=== PATIENT | female | born 1995 | race Caucasian/White ===

== ENCOUNTER → 2016-11-08 | Outpatient (CLI) | payer OTHER ==
--- NOTE | 2016-11-08 13:30 | XR ---
EXAMINATION TYPE: XR cervical spine limited DATE OF EXAM: 11/08/2016 1:21 PM COMPARISON: September 18, 2009 HISTORY: Neck pain TECHNIQUE: 4 views FINDINGS: There is some straightening of the vertebra and a slight kyphotic curvature. Disc spaces ar e normal. Posterior elements are intact. There are no cervical ribs. Atlantoaxial facet joint is norm al. IMPRESSION: There is mild kyphotic curvature that is new compared to old exam and could relate to spa sm. No fracture seen.
--- NOTE | 2016-11-08 13:32 | XR ---
EXAMINATION TYPE: XR lumbar spine 2 or 3V DATE OF EXAM: 11/08/2016 1:21 PM COMPARISON: September 18, 2009 HISTORY: Back pain TECHNIQUE: 3 views FINDINGS: Lumbar vertebra have normal spacing and alignment. Posterior elements are intact. Sacroilia c joints appear normal. IMPRESSION: Normal lumbar spine. No change.
== END | disposition home or self-care (01) ==
LOC: LABWHC1 12:41
PROVIDERS: ATTEND Internal Medicine
DX: M40.202 Unspecified kyphosis, cervical region (principal); M54.9 Dorsalgia, unspecified; N91.2 Amenorrhea, unspecified
CPT/HCPCS: 36415; 72040; 72100; 84702

== ENCOUNTER → 2017-02-02 | Outpatient (CLI) | payer OTHER ==
--- NOTE | 2017-02-02 22:08 | MR ---
EXAMINATION TYPE: MR shoulder LT wo con DATE OF EXAM: 02/02/2017 COMPARISON: NONE HISTORY: Lt shoulder pain x 6 years, hx of fall landing on neck and shoulder TECHNIQUE: Multiplanar, multisequence imaging of the left shoulder is performed without contrast. FINDINGS: Rotator Cuff: Supraspinatus and infraspinatus tendons are grossly intact to humeral head attachment. Subscapularis tendon is intact. No abnormal signal is seen. No partial or full-thickness tear is iden tified. Rotator cuff muscle bulk is preserved. Acromioclavicular Joint: Acromioclavicular joint is felt within normal limits. Inferior fat plane is maintained. Distal acromion morphology is unremarkable. Glenohumeral Joint: There is small glenohumeral joint effusion. No significant spurring or joint spac e loss is seen. Labrum: The labrum appears grossly intact given limitation of non-arthrogram study. Biceps Tendon: The long head of biceps is in normal location within bicipital groove. Bone marrow signal: No focal abnormal marrow signal is appreciated. Other: No additional significant abnormality is appreciated. IMPRESSION: No rotator cuff or labral tear. No significant finding is seen to account for patient's s ymptoms.
--- NOTE | 2017-02-02 22:14 | MR ---
EXAMINATION TYPE: MR cspine/lspine wo con DATE OF EXAM: 02/02/2017 COMPARISON: Cervical and lumbar spine x-ray November 08, 2016. CT cervical spine September 16, 2012. HISTORY: Cervicalgia and lumbago per order. Headaches with neck pain for 6 years per patient. Back pa in for 6 months per patient. TECHNIQUE: Multiplanar, multisequence imaging of the cervical and lumbar spine are performed without IV contrast. FINDINGS: C-SPINE: FINDINGS: Sagittal images of the cervical spine show the craniocervical junction to appear within nor mal limits. The cervical and upper thoracic spinal cord is normal in course, caliber, and signal. Th ere is loss of normal cervical curvature The vertebral body and intravertebral disk heights are marielle l. There is posterior disc herniation C6-C7 level on sagittal images of the anterior thecal sac. The bone marrow signal intensity is within normal limits. No significant spurring is seen. Axial images show the C2-C3, C3-C4, C4-C5, C5-C6 levels all to appear within normal limits. Axial images at C6-C7 level shows central disc protrusion effacing anterior thecal sac on axial image 13, bilateral neural foramina are patent. Axial images at C7-T1 level are felt within normal limits. IMPRESSION: Loss of normal cervical curvature with disc herniation C6-C7 level mildly effacing anteri or thecal sac. L-SPINE: Sagittal images of the lumbar spine show vertebral body heights and alignment to appear satisfactory. The intervertebral discs demonstrate normal heights and hydration. No large posterior disc herniati ons are seen on sagittal images. The conus medullaris is normal in position and signal ending at T12- L1 disc space level. The bone marrow signal intensity is within normal limits. No significant spurri ng is seen. Axial images show no focal disc disease, or facet degenerative change at any lumbar level. There is no spinal canal stenosis, neural foraminal narrowing, or evidence of nerve root compromise. Fluid-filled second portion of duodenum is incidentally noted. Patient has very little intra-abdomina l fat. IMPRESSION: Negative MRI of the lumbar spine. No significant abnormality is seen to account for carroll ent's symptoms.
== END | disposition home or self-care (01) ==
LOC: RADMRIMAIN 16:37
PROVIDERS: ATTEND Psychiatry & Neurology Pain Medicine
DX: M50.223 Other cervical disc displacement at C6-C7 level (principal); M54.5 Low back pain; M25.512 Pain in left shoulder
CPT/HCPCS: 72141; 72148

== ENCOUNTER 2017-02-07 12:36 | Emergency (ER) | payer OTHER ==
[2017-02-07] MEDS ORDERED: DICYCLOMINE 10 MG/ML 2 ML AMP IM STA (13:22)
[2017-02-07] MEDS ORDERED: diphenhydrAMINE 50 MG/ML 1 ML VIAL IVP STA (13:22)
[2017-02-07] MEDS ORDERED: SODIUM CHLORIDE 0.9% 1,000 ML IV STA (13:22)
[2017-02-07] MEDS ORDERED: METOCLOPRAMIDE 5 MG/ML 2 ML VIAL IVP STA (13:24)
--- NOTE | 2017-02-07 13:25 | ED ---
General Adult HPI - General Chief complaint: Back Pain/Injury Stated complaint: Abd Pain, Lower Back Pain Source: patient, RN notes reviewed Mode of arrival: ambulatory Limitations: no limitations - History of Present Illness Initial comments: Tate is a 21yo female who presents to the ED for evaluation of abdominal pain, back pain and headache. The patient reports that yesterday she developed cramping bilateral abdominal pain which radiates throughout her abdomen and is associated with nausea. She reports that she had a normal bowel movement yesterday no diarrhea, no constipation and no hematochezia. She denies any urinary symptoms. She reports her last menstrual cycle ended on January 20, this was her first menstrual cycle since giving to her child 16 months ago, because she has breast-feeding. Patient describes her abdominal pain is cramping in nature and constant. She took Advil yesterday with no relief. She was able to sleep throughout the night but woke this morning with persistent abdominal cramping. Patient does report a distant history of ovarian cysts which were diagnosed at age of 15. She denies any vaginal bleeding, vaginal discharge or concern for sexually transmitted infections. She recently followed up with her OB medical billing associate 2 months ago at which time she was given a good bill of health. Patient reports she has been suffering from recent headaches, vertigo and neck pain. She has been evaluated multiple times and referred to neurology. She has had an EEG, computed tomography scan and MRI. She reports that she feels like this abdominal pain is exacerbating these chronic symptoms. She reports that she is having a headache and worsening of her left neck pain which radiates to her left shoulder. This pain and discomfort is similar in character to her previous episodes. -: days(s) Location: abdomen Radiation: back, neck, extremity (left shoulder) Quality: aching Consistency: constant Improves with: none Worsens with: movement Associated Symptoms: headaches, loss of appetite Treatments Prior to Arrival: NSAID - Related Data Home Medications Medication Instructions Recorded Confirmed No Known Home Medications [No 02/07/17 02/07/17 Known Home Medications] Allergies Allergy/AdvReac Type Severity Reaction Status Date / Time No Known Allergies Allergy Verified 02/07/17 13:04 Last menstrual period: 01/13/17 Review of Systems ROS Statement: Those systems with pertinent positive or pertinent negative responses have been documented in the HPI. ROS Other: All systems not noted in ROS Statement are negative. Constitutional: Denies: fever, chills Eyes: Denies: vision change Respiratory: Denies: dyspnea Cardiovascular: Denies: chest pain Gastrointestinal: Reports: as per HPI, abdominal pain, nausea. Denies: vomiting , diarrhea, constipation, hematemesis, melena, hematochezia Genitourinary: Reports: abnormal menses (currently , irregular menses). Denies: urgency, dysuria, frequency, hematuria, discharge Musculoskeletal: Reports: back pain Skin: Denies: rash, lesions Neurological: Reports: headache. Denies: paresthesias, confusion Hematological/Lymphatic: Denies: swollen glands Past Medical History Past Medical History: No Reported History, Syncope Additional Past Medical History / Comment(s): back pain History of Any Multi-Drug Resistant Organisms: None Reported Past Surgical History: Appendectomy Additional Past Surgical History / Comment(s): bilat bottom wisdom teeth extraction Past Psychological History: Anxiety, Depression Smoking Status: Former smoker Past Alcohol Use History: None Reported Past Drug Use History: None Reported - Past Family History Mother Family Medical History: No Reported History General Exam Limitations: no limitations General appearance: alert, in no apparent distress Head exam: Present: atraumatic, normocephalic, normal inspection Eye exam: Present: normal appearance, PERRL, EOMI. Absent: scleral icterus, conjunctival injection, periorbital swelling ENT exam: Present: mucous membranes moist Neck exam: Present: full ROM. Absent: lymphadenopathy Respiratory exam: Present: normal lung sounds bilaterally. Absent: respiratory distress, wheezes, rales, rhonchi, stridor Cardiovascular Exam: Present: normal rhythm, tachycardia, normal heart sounds. Absent: systolic murmur, diastolic murmur, rubs, gallop, clicks GI/Abdominal exam: Present: soft, normal bowel sounds. Absent: distended, tenderness, guarding, rebound, rigid, organomegaly, mass Rectal exam: Present: deferred Extremities exam: Present: normal inspection, full ROM, normal capillary refill. Absent: tenderness, pedal edema, joint swelling, calf tenderness Neurological exam: Present: alert, oriented X3 Psychiatric exam: Absent: agitated Skin exam: Present: warm, dry Course Vital Signs 02/07/17 02/07/17 12:38 14:31 Temperature 99.7 F H Pulse Rate 102 H 78 Respiratory 22 18 Rate Blood Pressure 107/71 102/58 O2 Sat by Pulse 100 98 Oximetry - Reevaluation(s) Reevaluation #1: Patient noted to be sleeping comfortably in bed by nursing staff, patient re- evaluated, awake, reports her pain has subsided significantly and she was able to sleep. Now again experiencing low pelvic cramping. Headache resolved. Patient states her disintegrator feeder advised her to get a pelvic US while at the ER, advised patient we will order an ultrasound to evaluate. Patient agreeable. 02/07/17 15:09 Reevaluation #2: Patient was reevaluated, resting comfortably in bed. Ultrasound results were discussed with patient who reports she has been told she has ovarian cysts in the past and has a family history of ovarian cysts, she reports that her grandmother had of her ovaries removed due to chronic pain. Patient expresses understanding of the ultrasound findings. 02/07/17 16:51 Medical Decision Making - Medical Decision Making Patient seen and evaluated, history obtained by patient, medical records and nursing notes. Labs ordered, Reglan and Benadryl ordered for headache Patient with persistent low pelvic pain, US ordered Patient resting comfortably in bed US with RIGHT ovarian cyst, small amount of free fluid Results were discussed with patient who expresses understanding of findings, reports she has experienced ovarian cyst pain in the past and this is similar. She states she has close follow up with Clerical Dentist Assistant Dr Senthil gutierrez. Will call on Thursday for follow up visit. Patient also has follow up with neurology scheduled this week for evaluation of headaches. Patient advised to return to the ED for any acute worsening of pain, fever, chills, nausea, vomiting, lightheadedness or any symptoms she considers concerning. - Lab Data Result diagrams: 02/07/17 13:36 02/07/17 13:36 Lab Results 02/07/17 02/07/17 02/07/17 Range/Units 13:36 13:36 13:36 WBC 4.2 (3.8-10.6) k/uL RBC 4.24 (3.80-5.40) m/uL Hgb 12.8 (11.4-16.0) gm/dL Hct 39.2 (34.0-46.0) % MCV 92.5 (80.0-100.0) fL MCH 30.2 (25.0-35.0) pg MCHC 32.7 (31.0-37.0) g/dL RDW 13.1 (11.5-15.5) % Plt Count 176 (150-450) k/uL Neutrophils % 78 % Lymphocytes % 12 % Monocytes % 7 % Eosinophils % 0 % Basophils % 0 % Neutrophils # 3.3 (1.3-7.7) k/uL Lymphocytes # 0.5 L (1.0-4.8) k/uL Monocytes # 0.3 (0-1.0) k/uL Eosinophils # 0.0 (0-0.7) k/uL Basophils # 0.0 (0-0.2) k/uL Sodium 138 (137-145) mmol/L Potassium 4.0 (3.5-5.1) mmol/L Chloride 104 (98-107) mmol/L Carbon Dioxide 23 (22-30) mmol/L Anion Gap 11 mmol/L BUN 13 (7-17) mg/dL Creatinine 0.70 (0.52-1.04) mg/dL Est GFR (MDRD) Af Amer >60 (>60 ml/min/1.73 sqM) Est GFR (MDRD) Non-Af >60 (>60 ml/min/1.73 sqM) Glucose 78 (74-99) mg/dL Calcium 8.9 (8.4-10.2) mg/dL Total Bilirubin 0.6 (0.2-1.3) mg/dL AST 18 (14-36) U/L ALT 24 (9-52) U/L Alkaline Phosphatase 68 (38-126) U/L Total Protein 6.5 (6.3-8.2) g/dL Albumin 4.0 (3.5-5.0) g/dL Amylase <30 L (30-110) U/L Lipase 35 (23-300) U/L Urine Color Urine Appearance (Clear) Urine pH (5.0-8.0) Ur Specific [place] (1.001-1.035) Urine Protein (Negative) Urine Glucose (UA) (Negative) Urine Ketones (Negative) Urine Blood (Negative) Urine Nitrite (Negative) Urine Bilirubin (Negative) Urine Urobilinogen (<2.0) mg/dL Ur Leukocyte Esterase (Negative) Urine RBC (0-5) /hpf Urine WBC (0-5) /hpf Ur Squamous Epith Cells (0-4) /hpf Urine Bacteria (None) /hpf Urine Mucus (None) /hpf Urine HCG, Qual Not Detected (Not Detectd) 02/07/17 Range/Units 13:36 WBC (3.8-10.6) k/uL RBC (3.80-5.40) m/uL Hgb (11.4-16.0) gm/dL Hct (34.0-46.0) % MCV (80.0-100.0) fL MCH (25.0-35.0) pg MCHC (31.0-37.0) g/dL RDW (11.5-15.5) % Plt Count (150-450) k/uL Neutrophils % % Lymphocytes % % Monocytes % % Eosinophils % % Basophils % % Neutrophils # (1.3-7.7) k/uL Lymphocytes # (1.0-4.8) k/uL Monocytes # (0-1.0) k/uL Eosinophils # (0-0.7) k/uL Basophils # (0-0.2) k/uL Sodium (137-145) mmol/L Potassium (3.5-5.1) mmol/L Chloride (98-107) mmol/L Carbon Dioxide (22-30) mmol/L Anion Gap mmol/L BUN (7-17) mg/dL Creatinine (0.52-1.04) mg/dL Est GFR (MDRD) Af Amer (>60 ml/min/1.73 sqM) Est GFR (MDRD) Non-Af (>60 ml/min/1.73 sqM) Glucose (74-99) mg/dL Calcium (8.4-10.2) mg/dL Total Bilirubin (0.2-1.3) mg/dL AST (14-36) U/L ALT (9-52) U/L Alkaline Phosphatase (38-126) U/L Total Protein (6.3-8.2) g/dL Albumin (3.5-5.0) g/dL Amylase (30-110) U/L Lipase (23-300) U/L Urine Color Yellow Urine Appearance Cloudy H (Clear) Urine pH 7.0 (5.0-8.0) Ur Specific [place] 1.025 (1.001-1.035) Urine Protein 1+ H (Negative) Urine Glucose (UA) Negative (Negative) Urine Ketones 1+ H (Negative) Urine Blood Negative (Negative) Urine Nitrite Negative (Negative) Urine Bilirubin Negative (Negative) Urine Urobilinogen 2.0 (<2.0) mg/dL Ur Leukocyte Esterase Negative (Negative) Urine RBC 2 (0-5) /hpf Urine WBC 1 (0-5) /hpf Ur Squamous Epith Cells 14 H (0-4) /hpf Urine Bacteria Rare H (None) /hpf Urine Mucus Few H (None) /hpf Urine HCG, Qual (Not Detectd) Disposition Clinical Impression: Ovarian cyst Disposition: HOME SELF-CARE Instructions: Ovarian Cyst (ED) Referrals: None,Stated [Primary Care Provider] - 1-2 days Jailene Ndiaye DO [Doctor of Osteopathic Medicine] - 1-2 days
[2017-02-07 14:15] LABS: Basophils % (A) 0 %; CH 30.6; CHCM 33.2; Eosinophils % (A) 0 %; HCT 39.2 % (34.0-46.0); HDW 2.37; HGB 12.8 gm/dL (11.4-16.0); Luc # (Auto) 0.08; Luc % (Auto) 2; Lymphocytes # (A) 0.5 k/uL (1.0-4.8); Lymphocytes % (A) 12 %; MCH 30.2 pg (25.0-35.0); MCHC 32.7 g/dL (31.0-37.0); MCV 92.5 fL (80.0-100.0); Mean Platelet Volume 7.3; Monocytes # (A) 0.3 k/uL (0-1.0); Monocytes % (A) 7 %; Neutrophils # (A) 3.3 k/uL (1.3-7.7); Neutrophils % (A) 78 %; RBC 4.24 m/uL (3.80-5.40); RDW 13.1 % (11.5-15.5); WBC 4.2 k/uL (3.8-10.6)
[2017-02-07 14:20] LABS: Appearance,Urine Cloudy (Clear); Bacteria,Urine Rare /hpf; Bilirubin,Urine Negative (Negative); Glucose,Urine (UA) Negative (Negative); Ketones,Urine 1+ (Negative); Leukocyte Esterase,Urine Negative (Negative); Mucus,Urine Few /hpf; Nitrite,Urine Negative (Negative); Particle Count 5592; Protein,Urine 1+ (Negative); RBC,Urine 2 /hpf (0-5); Specific Gravity,Urine 1.025 (1.001-1.035); Squamous Epithelial Cell,Urine 14 /hpf (0-4); UA Billing (MACRO vs. MICRO) MICRO; WBC,Urine 1 /hpf (0-5)
[2017-02-07 14:32] VITALS: RESP 18
[2017-02-07 14:36] LABS: ALT 24 U/L (9-52); AST 18 U/L (14-36); Alkaline Phosphatase 68 U/L (38-126); Amylase <30 U/L (30-110); Anion Gap 11 mmol/L; Blood Urea Nitrogen 13 mg/dL (7-17); Calcium 8.9 mg/dL (8.4-10.2); Carbon Dioxide 23 mmol/L (22-30); Chloride 104 mmol/L (98-107); Glucose 78 mg/dL (74-99); Non-African American GFR(MDRD) >60 (>60 ml/min/1.73 sqM); Sodium 138 mmol/L (137-145); Total Bilirubin 0.6 mg/dL (0.2-1.3); Total Protein 6.5 g/dL (6.3-8.2)
--- NOTE | 2017-02-07 16:37 | US ---
EXAMINATION TYPE: US transvaginal DATE OF EXAM: 02/07/2017 COMPARISON: NONE CLINICAL HISTORY: Pain, abdominal cramping, LMP ended 6-6-17, 1st cycle since giving 16 months prior. TECHNIQUE: Transvaginal (TV) with color Doppler. EXAM MEASUREMENTS: Uterus: 8.5 x 4.6 x 6.0 cm Endometrial Stripe: 1.3 cm Right Ovary: 3.7 x 2.5 x 3.1 cm Left Ovary: 2.1 x 1.9 x 1.9 cm 1. Uterus: Anteverted wnl 2. Endometrium: wnl 3. Right Ovary: cyst vs dominant follicle measuring 2.4 x 1.6 x 2.1 4. Left Ovary: wnl Spectral, color and waveform doppler imaging shows good arterial and venous flow within the ovaries ; there is no evidence for ovarian torsion. 5. Bilateral Adnexa: ff adjacent to right ovary 6. Posterior cul-de-sac: mild ff IMPRESSION: There is mild free fluid in the cul-de-sac. There is a 2.4 x 1.6 cm right ovarian cyst. N ormal uterus and endometrium. No evidence of ovarian torsion.
[2017-02-07 17:10] VITALS: BP 108/59; PULSE 99; TEMP 98.6
== END 2017-02-07 17:10 | disposition home or self-care (01) ==
LOC: EC 12:36
DX: N83.201 Unspecified ovarian cyst, right side (principal); Z90.49 Acquired absence of other specified parts of digestive tract; Z87.891 Personal history of nicotine dependence
CPT/HCPCS: 99284; 96372; 96374; 96375; 96361; 36415; 80053; 82150; 83690; 85025; 81001; 81025; 93975; 76830; J1200; J0500; J2765

== ENCOUNTER 2017-02-18 12:47 | Emergency (ER) | payer OTHER ==
[2017-02-18] MEDS ORDERED: KETOROLAC 60 MG/2 ML VIAL IM STA (13:17)
[2017-02-18] MEDS ORDERED: methylPREDNISolone SOD SUCCI 125 MG/2 ML VIAL IM STA (13:17)
[2017-02-18] MEDS ORDERED: ORPHENADRINE 30 MG/ML 2 ML VIAL IM STA (13:17)
--- NOTE | 2017-02-18 13:52 | ED ---
Headache HPI - General Chief Complaint: Headache Stated Complaint: ovarian cysts/headaches Time Seen by Provider: 02/18/17 13:07 Source: RN notes reviewed Mode of arrival: ambulatory Limitations: no limitations - History of Present Illness Initial Comments: 21-year-old female presents for migraines and neck pain that she's had on and off for years. Patient states that she had an MRI done by her doctor is not reviewed results. Patient states it starts in her neck this pain will wrap around her head" on her shoulders. Patient states she just continues to have the pain so she thought that she should be seen. Patient states eating and Excedrin. Helping. Patient states the pain comes on gradually and slowly goes away and she'll get a few hours of relief but then it will come back. Patient states she just was wondering if this and she we can do to help her with her symptoms. - Related Data Home Medications Medication Instructions Recorded Confirmed Aspirin/Acetaminophen/Caffeine 2 tab PO DAILY PRN 02/18/17 02/18/17 [Excedrin Migraine Caplet] Previous Rx's Medication Instructions Recorded Ibuprofen [Motrin] 600 mg PO Q6HR PRN #20 tab 02/18/17 Orphenadrine [Norflex] 100 mg PO Q12H #10 tablet.er 02/18/17 predniSONE 50 mg PO DAILY #5 tab 02/18/17 Allergies Allergy/AdvReac Type Severity Reaction Status Date / Time No Known Allergies Allergy Verified 02/18/17 13:16 Review of Systems ROS Statement: Those systems with pertinent positive or pertinent negative responses have been documented in the HPI. ROS Other: All systems not noted in ROS Statement are negative. Past Medical History Past Medical History: No Reported History, Syncope Additional Past Medical History / Comment(s): back pain History of Any Multi-Drug Resistant Organisms: None Reported Past Surgical History: Appendectomy Additional Past Surgical History / Comment(s): bilat bottom wisdom teeth extraction Past Psychological History: Anxiety, Depression Smoking Status: Former smoker Past Alcohol Use History: None Reported Past Drug Use History: None Reported - Past Family History Mother Family Medical History: No Reported History General Exam Limitations: no limitations General appearance: alert, in no apparent distress Head exam: Present: atraumatic, normocephalic, normal inspection Eye exam: Present: normal appearance, PERRL, EOMI. Absent: scleral icterus, conjunctival injection, periorbital swelling ENT exam: Present: normal exam, mucous membranes moist Neck exam: Present: normal inspection. Absent: tenderness (Improvement with palpation of pain), meningismus, lymphadenopathy Respiratory exam: Present: normal lung sounds bilaterally. Absent: respiratory distress, wheezes, rales, rhonchi, stridor Cardiovascular Exam: Present: regular rate, normal rhythm, normal heart sounds. Absent: systolic murmur, diastolic murmur, rubs, gallop, clicks Neurological exam: Present: alert, oriented X3 Psychiatric exam: Present: normal affect, normal mood Skin exam: Present: warm, dry, intact, normal color. Absent: rash Course Vital Signs 02/18/17 12:56 Temperature 97.8 F Pulse Rate 90 Respiratory 20 Rate Blood Pressure 116/60 O2 Sat by Pulse 98 Oximetry Medical Decision Making - Medical Decision Making 21-year-old female presents for neck pain and headache. This time outpatient MRIs reviewed that does show disc herniation.*Norflex and steroids. We did discuss close follow-up with her neurologist return parameters and all questions and patient stated that she understood and she is negative plan. This time she will be discharged home. - Radiology Data Radiology results: report reviewed, image reviewed Disposition Clinical Impression: Cervical radiculopathy Disposition: HOME SELF-CARE Condition: Stable Instructions: Cervical Radiculopathy (ED) Additional Instructions: Please use medication as discussed. Please follow up with family doctor if symptoms have not improved over the next two days. Please return to the emergency room if your symptoms increase or worsen or for any other concerns. Prescriptions: Ibuprofen [Motrin] 600 mg PO Q6HR PRN #20 tab PRN Reason: Pain Orphenadrine [Norflex] 100 mg PO Q12H #10 tablet.er predniSONE 50 mg PO DAILY #5 tab Referrals: Aria Bedolla MD [Primary Care Provider] - 1-2 days Time of Disposition: 13:52
[2017-02-18 14:01] VITALS: BP 101/57; PULSE 69; RESP 16; TEMP 98.6
== END 2017-02-18 14:01 | disposition home or self-care (01) ==
LOC: EC 12:47
DX: M54.12 Radiculopathy, cervical region (principal); R51 Headache; M50.20 Other cervical disc displacement, unspecified cervical region; Z87.891 Personal history of nicotine dependence
CPT/HCPCS: 99284; 96372 ×3; J2360; J2930; J1885

== ENCOUNTER → 2017-02-26 | Outpatient (CLI) | payer OTHER ==
--- NOTE | 2017-02-26 21:27 | MR ---
EXAMINATION TYPE: MR brain wo/w con DATE OF EXAM: 02/26/2017 COMPARISON: CT brain September 16, 2022. HISTORY: Headaches unusual duration per order. Dizziness with abnormal VAT per patient. TECHNIQUE: Multiplanar, multisequence images of the brain and brainstem is performed without and with IV contras t, utilizing 12 mL intravenous MultiHance . FINDINGS: Diffusion weighted images demonstrate no evidence of a recent infarct or other diffusion ab normality. There is no extra-axial fluid collection or significant white matter signal abnormality. The ventricular system and cisternal spaces are normal in size and appearance. The brain volume is age appropriate. Midline structures demonstrate normal morphology. The craniocervical junction appears within normal limits. Post contrast images demonstrate no abnormal enhancement. The dural venous sinuses appear pa tent. The visualized sinuses are clear and the globes are intact. No suspicious increased fluid signa l is seen in mastoid air cells bilaterally. IMPRESSION: Unremarkable study. No significant finding is seen to account for patient's symptoms.
== END | disposition home or self-care (01) ==
LOC: RADMRIMAIN 20:39
PROVIDERS: ATTEND Psychiatry & Neurology Pain Medicine
DX: R51 Headache (principal)
CPT/HCPCS: 70553; A9577

== ENCOUNTER 2017-04-06 13:17 | Emergency (ER) | payer OTHER ==
--- NOTE | 2017-04-06 15:43 | ED ---
Abdominal Pain HPI <Ziggy Champagne - Last Filed: 04/06/17 19:54> - General Source: patient, RN notes reviewed, old records reviewed Mode of arrival: ambulatory Limitations: no limitations <Tamar Draper - Last Filed: 04/06/17 22:41> - General Chief Complaint: Abdominal Pain Stated Complaint: Abd Pain/??? weeks/months Time Seen by Provider: 04/06/17 15:16 - History of Present Illness Initial Comments: Physical is a 21-year-old female presenting to the emergency Department chief complaint of finding out that she is , and a dose of sharp shooting abdominal pain. Patient reports that she is very depressed that she is . She states that she may be a month to 2 months . She states that her life is always difficult but this makes it worse. She states that she lost her job and had to resort to [employer] dancing to make payments for her house. She reports about the status of the child. Patient reports that she's had no vaginal bleeding denies any vaginal discharge. She reports that she is looking for "options" for this , she does mention that she is against but she may have to have an . Patient states that she has daily suicidal thoughts, but has never had a specific plan. She reports that she has to take care of her daughter, and friends and family. (Tamar Draper) - Related Data Home Medications Medication Instructions Recorded Confirmed Aspirin/Acetaminophen/Caffeine 2 tab PO DAILY PRN 02/18/17 04/06/17 [Excedrin Migraine Caplet] Previous Rx's Medication Instructions Recorded Ibuprofen [Motrin] 600 mg PO Q6HR PRN #20 tab 02/18/17 [id number] Acid 1 cap PO DAILY #30 cap 04/06/17 [-U Capsule (formulary)] Allergies Allergy/AdvReac Type Severity Reaction Status Date / Time No Known Allergies Allergy Verified 04/06/17 13:34 Review of Systems ROS Other: All systems not noted in ROS Statement are negative. <Ziggy Champagne - Last Filed: 04/06/17 19:54> ROS Other: All systems not noted in ROS Statement are negative. <Tamar Draper - Last Filed: 04/06/17 22:41> ROS Statement: Those systems with pertinent positive or pertinent negative responses have been documented in the HPI. Past Medical History Past Medical History: Syncope Additional Past Medical History / Comment(s): back pain History of Any Multi-Drug Resistant Organisms: None Reported Past Surgical History: Appendectomy Additional Past Surgical History / Comment(s): bilat bottom wisdom teeth extraction Past Psychological History: Anxiety, Depression Smoking Status: Former smoker Past Alcohol Use History: None Reported Past Drug Use History: None Reported - Past Family History Mother Family Medical History: No Reported History <Tamar Draper - Last Filed: 04/06/17 22:41> General Exam <Ziggy Champagne - Last Filed: 04/06/17 19:54> Limitations: no limitations General appearance: alert, in no apparent distress Head exam: Present: atraumatic, normocephalic, normal inspection Eye exam: Present: normal appearance, PERRL, EOMI. Absent: scleral icterus, conjunctival injection, periorbital swelling ENT exam: Present: normal exam, mucous membranes moist Neck exam: Present: normal inspection. Absent: tenderness, meningismus, lymphadenopathy Respiratory exam: Present: normal lung sounds bilaterally. Absent: respiratory distress, wheezes, rales, rhonchi, stridor Cardiovascular Exam: Present: regular rate, normal rhythm, normal heart sounds. Absent: systolic murmur, diastolic murmur, rubs, gallop, clicks GI/Abdominal exam: Present: soft, normal bowel sounds. Absent: distended, tenderness, guarding, rebound, rigid Extremities exam: Present: normal inspection, full ROM, normal capillary refill. Absent: tenderness, pedal edema, joint swelling, calf tenderness Back exam: Present: normal inspection Neurological exam: Present: alert, oriented X3, CN II-XII intact Psychiatric exam: Present: normal affect, normal mood Skin exam: Present: warm, dry, intact, normal color. Absent: rash <Tamar Draper - Last Filed: 04/06/17 22:41> - General Exam Comments Initial Comments: Physical is a 21-year-old female. Patient appears to be upset and distraught. ( Tamar Draper) Course <Ziggy Champagne - Last Filed: 04/06/17 19:54> <Tamar Draper - Last Filed: 04/06/17 22:41> Vital Signs 04/06/17 04/06/17 04/06/17 13:32 15:34 17:00 Temperature 98.7 F Pulse Rate 100 Respiratory 16 18 16 Rate Blood Pressure 115/75 O2 Sat by Pulse 98 99 Oximetry 04/06/17 04/06/17 18:19 19:41 Temperature 97.1 F L Pulse Rate 87 Respiratory 18 16 Rate Blood Pressure 97/51 O2 Sat by Pulse 98 97 Oximetry - Reevaluation(s) Reevaluation #1: 04/06/17 19:04 Patient reevaluated by myself, Dr. Champagne. Patient resting comfortably in bed. Patient updated on results and plan. Patient is made aware that ectopic has not completely ruled out at this time. Patient states she sees Dr. Morton regularly. Case was discussed with Dr. Webster who would like patient to follow-up and call this week. Patient will be provided prescription for repeat beta hCG in [address] Morton to follow-up with this. 04/06/17 19:54 Patient admits to having chronic intermittent depression and occasional suicidal thoughts however states she would never act on them. Patient is not suicidal at this time. Patient does contract for safety. (Ziggy Champagne) Medical Decision Making - Lab Data Result diagrams: 04/06/17 15:50 04/06/17 15:50 <Ziggy Champagne - Last Filed: 04/06/17 19:54> - Lab Data Result diagrams: 04/06/17 15:50 04/06/17 15:50 - Radiology Data Radiology results: report reviewed <Tamar Draper - Last Filed: 04/06/17 22:41> - Medical Decision Making This is a 21-year-old female presenting to the emergency department with chief complaint of intermittent abdominal pain associated with . Patient reports that she thinks she may be 4 weeks however she is unsure of exact dates. Patient is minimally tender on exam, patient has no peritoneal signs. Patient is given a IV, lab work obtained. Patient's hCG is 1200. Patient is O+ . She reports that she did see Dr. Morton in the past for her previous . Transvaginal ultrasound was completed: Endometrium appears thickened measuring 2.1 cm. There is Jessica: 2.4 x 2.3 cm area within the left ovary. This may be technical rather than related to hemorrhagic cyst or endometrioma. Recommended follow-up in 4-6 weeks. Small amount of free fluid within the pelvis. Right ovarian cyst has resolved. Patient states that she does have this history of ovarian cyst, but she does not recall though there was one on the left. Discussed the case with Dr. Champagne. Given the fact the patient may have an ectopic , early in the with the left ovarian abnormality noted. Patient will be evaluated by Dr. Champagne. He did talk to Dr. Webster. I recommends repeating beta hCG in 2 days. And following up with Dr. Morton. At this time the patient is medically stable, and seen by Dr. Champagne I will clear the patient for psych services. Patient also mentions while in the emergency department that she has had daily suicidal thoughts. She reports that she has no suicidal plan that she has a daughter and family to take care of. She states that it is just been increasingly stressful she has lost her job, increased alcohol consumption. Patient did not want to see psych services and wait longer. Patient reports that she has no active suicidal thoughts. Patient contracts to safety with myself and Dr. Champagne. Patient will be discharged with referral for [facility]. I will place patient on vitamins, and have patient follow up with Dr. Morton in 2 days. Discussed returning if pain worsens or she has any active suidcidal thoughts. (Tamar Draper) - Lab Data Lab Results 04/06/17 04/06/17 04/06/17 Range/Units 15:50 15:50 15:50 WBC 5.2 (3.8-10.6) k/uL RBC 4.31 (3.80-5.40) m/uL Hgb 13.5 (11.4-16.0) gm/dL Hct 39.0 (34.0-46.0) % MCV 90.4 (80.0-100.0) fL MCH 31.2 (25.0-35.0) pg MCHC 34.5 (31.0-37.0) g/dL RDW 13.1 (11.5-15.5) % Plt Count 324 (150-450) k/uL Neutrophils % 56 % Lymphocytes % 29 % Monocytes % 7 % Eosinophils % 4 % Basophils % 1 % Neutrophils # 2.9 (1.3-7.7) k/uL Lymphocytes # 1.5 (1.0-4.8) k/uL Monocytes # 0.4 (0-1.0) k/uL Eosinophils # 0.2 (0-0.7) k/uL Basophils # 0.1 (0-0.2) k/uL Sodium 140 (137-145) mmol/L Potassium 4.1 (3.5-5.1) mmol/L Chloride 108 H (98-107) mmol/L Carbon Dioxide 21 L (22-30) mmol/L Anion Gap 11 mmol/L BUN 13 (7-17) mg/dL Creatinine 0.70 (0.52-1.04) mg/dL Est GFR (MDRD) Af Amer >60 (>60 ml/min/1.73 sqM) Est GFR (MDRD) Non-Af >60 (>60 ml/min/1.73 sqM) Glucose 79 (74-99) mg/dL Calcium 8.9 (8.4-10.2) mg/dL Total Bilirubin 0.6 (0.2-1.3) mg/dL AST 18 (14-36) U/L ALT 26 (9-52) U/L Alkaline Phosphatase 60 (38-126) U/L Total Protein 6.7 (6.3-8.2) g/dL Albumin 4.2 (3.5-5.0) g/dL HCG, Quant 1200.0 mIU/mL Urine Color Yellow Urine Appearance Cloudy H (Clear) Urine pH 5.5 (5.0-8.0) Ur Specific [place] 1.024 (1.001-1.035) Urine Protein Trace H (Negative) Urine Glucose (UA) Negative (Negative) Urine Ketones Negative (Negative) Urine Blood Negative (Negative) Urine Nitrite Negative (Negative) Urine Bilirubin Negative (Negative) Urine Urobilinogen <2.0 (<2.0) mg/dL Ur Leukocyte Esterase Negative (Negative) Ur Squamous Epith Cells 12 H (0-4) /hpf Urine Mucus Few H (None) /hpf Urine Opiates Screen (NotDetected) Ur Oxycodone Screen (NotDetected) Urine Methadone Screen (NotDetected) Ur Propoxyphene Screen (NotDetected) Ur Barbiturates Screen (NotDetected) U Tricyclic Antidepress (NotDetected) Ur Phencyclidine Scrn (NotDetected) Ur Amphetamines Screen (NotDetected) U Methamphetamines Scrn (NotDetected) U Benzodiazepines Scrn (NotDetected) Urine Cocaine Screen (NotDetected) U Marijuana (THC) Screen (NotDetected) Blood Type Blood Type Recheck 04/06/17 04/06/17 Range/Units 15:50 16:45 WBC (3.8-10.6) k/uL RBC (3.80-5.40) m/uL Hgb (11.4-16.0) gm/dL Hct (34.0-46.0) % MCV (80.0-100.0) fL MCH (25.0-35.0) pg MCHC (31.0-37.0) g/dL RDW (11.5-15.5) % Plt Count (150-450) k/uL Neutrophils % % Lymphocytes % % Monocytes % % Eosinophils % % Basophils % % Neutrophils # (1.3-7.7) k/uL Lymphocytes # (1.0-4.8) k/uL Monocytes # (0-1.0) k/uL Eosinophils # (0-0.7) k/uL Basophils # (0-0.2) k/uL Sodium (137-145) mmol/L Potassium (3.5-5.1) mmol/L Chloride (98-107) mmol/L Carbon Dioxide (22-30) mmol/L Anion Gap mmol/L BUN (7-17) mg/dL Creatinine (0.52-1.04) mg/dL Est GFR (MDRD) Af Amer (>60 ml/min/1.73 sqM) Est GFR (MDRD) Non-Af (>60 ml/min/1.73 sqM) Glucose (74-99) mg/dL Calcium (8.4-10.2) mg/dL Total Bilirubin (0.2-1.3) mg/dL AST (14-36) U/L ALT (9-52) U/L Alkaline Phosphatase (38-126) U/L Total Protein (6.3-8.2) g/dL Albumin (3.5-5.0) g/dL HCG, Quant mIU/mL Urine Color Urine Appearance (Clear) Urine pH (5.0-8.0) Ur Specific [place] (1.001-1.035) Urine Protein (Negative) Urine Glucose (UA) (Negative) Urine Ketones (Negative) Urine Blood (Negative) Urine Nitrite (Negative) Urine Bilirubin (Negative) Urine Urobilinogen (<2.0) mg/dL Ur Leukocyte Esterase (Negative) Ur Squamous Epith Cells (0-4) /hpf Urine Mucus (None) /hpf Urine Opiates Screen Not Detected (NotDetected) Ur Oxycodone Screen Not Detected (NotDetected) Urine Methadone Screen Not Detected (NotDetected) Ur Propoxyphene Screen Not Detected (NotDetected) Ur Barbiturates Screen Not Detected (NotDetected) U Tricyclic Antidepress Not Detected (NotDetected) Ur Phencyclidine Scrn Not Detected (NotDetected) Ur Amphetamines Screen Not Detected (NotDetected) U Methamphetamines Scrn Not Detected (NotDetected) U Benzodiazepines Scrn Not Detected (NotDetected) Urine Cocaine Screen Not Detected (NotDetected) U Marijuana (THC) Screen Detected H (NotDetected) Blood Type O Positive Blood Type Recheck No - Radiology Data Transvaginal ultrasound was completed: Endometrium appears thickened measuring 2.1 cm. There is Jessica: 2.4 x 2.3 cm area within the left ovary. This may be technical rather than related to hemorrhagic cyst or endometrioma. Recommended follow-up in 4-6 weeks. Small amount of free fluid within the pelvis. Right ovarian cyst has resolved. (Tamar Draper) Disposition <Ziggy Champagne - Last Filed: 04/06/17 19:54> Time of Disposition: 20:05 <Tamar Draper - Last Filed: 04/06/17 22:41> Clinical Impression: , Left ovarian enlargement, Depression Disposition: HOME SELF-CARE Condition: Good Instructions: (ED), Ovarian Cyst (ED) Additional Instructions: Patient has a follow-up with her [employer] and repeat blood work within the next 2 days. Return to the emergency department if any alarming signs or symptoms occur. Falling up with [facility] and other counseling services in regards to depression. Prescriptions: [id number] Acid [-U Capsule (formulary)] 1 cap PO DAILY # 30 cap Referrals: Aria Bedolla MD [Primary Care Provider] - 1-2 days Jailene Morton DO [Doctor of Osteopathic Medicine] - 1-2 days
[2017-04-06 16:11] LABS: Basophils # (A) 0.1 k/uL (0-0.2); Basophils % (A) 1 %; CH 30.4; CHCM 33.7; Eosinophils # (A) 0.2 k/uL (0-0.7); Eosinophils % (A) 4 %; HDW 2.69; HGB 13.5 gm/dL (11.4-16.0); Luc # (Auto) 0.16; Luc % (Auto) 3; Lymphocytes # (A) 1.5 k/uL (1.0-4.8); Lymphocytes % (A) 29 %; MCH 31.2 pg (25.0-35.0); MCHC 34.5 g/dL (31.0-37.0); MCV 90.4 fL (80.0-100.0); Mean Platelet Volume 6.8; Monocytes # (A) 0.4 k/uL (0-1.0); Monocytes % (A) 7 %; Neutrophils # (A) 2.9 k/uL (1.3-7.7); Neutrophils % (A) 56 %; RBC 4.31 m/uL (3.80-5.40); RDW 13.1 % (11.5-15.5); WBC 5.2 k/uL (3.8-10.6); WBC (Perox) 5.51
[2017-04-06 16:21] LABS: Appearance,Urine Cloudy (Clear); Bilirubin,Urine Negative (Negative); Glucose,Urine (UA) Negative (Negative); Ketones,Urine Negative (Negative); Leukocyte Esterase,Urine Negative (Negative); Mucus,Urine Few /hpf; Nitrite,Urine Negative (Negative); PH, Urine 5.5 (5.0-8.0); Particle Count 6802; Protein,Urine Trace (Negative); Specific Gravity,Urine 1.024 (1.001-1.035); Squamous Epithelial Cell,Urine 12 /hpf (0-4); UA Billing (MACRO vs. MICRO) MICRO; Urobilinogen,Urine <2.0 mg/dL (<2.0)
[2017-04-06 16:29] LABS: ALT 26 U/L (9-52); AST 18 U/L (14-36); Alkaline Phosphatase 60 U/L (38-126); Anion Gap 11 mmol/L; Blood Urea Nitrogen 13 mg/dL (7-17); Calcium 8.9 mg/dL (8.4-10.2); Carbon Dioxide 21 mmol/L (22-30); Chloride 108 mmol/L (98-107); Glucose 79 mg/dL (74-99); Non-African American GFR(MDRD) >60 (>60 ml/min/1.73 sqM); Potassium 4.1 mmol/L (3.5-5.1); Sodium 140 mmol/L (137-145); Total Bilirubin 0.6 mg/dL (0.2-1.3); Total Protein 6.7 g/dL (6.3-8.2)
--- NOTE | 2017-04-06 16:55 | US ---
EXAMINATION TYPE: US transvaginal DATE OF EXAM: 04/06/2017 COMPARISON: 02/07/2017 CLINICAL HISTORY: Pain. Pelvic pain, patient states that she may be , Beta HcG unavailable at time of exam TECHNIQUE: Transvaginal (TV) Date of LMP: unknown EXAM MEASUREMENTS: Uterus: 8.2 x 4.6 x 6.2 cm Endometrial Stripe: 2.1 cm Right Ovary: 2.9 x 1.7 x 1.7 cm Left Ovary: 3.4 x 2.2 x 2.3 cm 1. Uterus: Anteverted wnl 2. Endometrium: thickened 3. Right Ovary: multiple follicles 4. Left Ovary: isoechoic area = 2.4 x 2.3 x 1.8cm Spectral, color and waveform doppler imaging shows good arterial and venous flow within the ovaries ; there is no evidence for ovarian torsion. 5. Bilateral Adnexa: appears wnl 6. Posterior cul-de-sac: free fluid noted IMPRESSION: 1. Endometrium appears to be thickened measuring 2.1 cm. Correlate for endometrial pathology. 2. There is an isoechoic 2.4 x 2.3 cm area within the left ovary. This may be technical rather than r elated to a hemorrhagic cyst or endometrioma. Recommend follow-up exam in 4-6 weeks. 3. Small amount of free fluid in the pelvis. 4. Right ovarian cyst has resolved
[2017-04-06 19:42] VITALS: BP 97/51; PULSE 87; RESP 16; TEMP 97.1
== END 2017-04-06 20:10 | disposition home or self-care (01) ==
LOC: EC 13:17
DX: O34.81 Maternal care for other abnormalities of pelvic organs, first trimester (principal); N83.8 Other noninflammatory disorders of ovary, fallopian tube and broad ligament; O99.341 Other mental disorders complicating pregnancy, first trimester; F32.9 Major depressive disorder, single episode, unspecified; Z90.49 Acquired absence of other specified parts of digestive tract; Z3A.00 Weeks of gestation of pregnancy not specified
CPT/HCPCS: 36415; 76830; 80053; 80306; 81001; 84702; 85025; 86900; 86901; 93975; 99284

== ENCOUNTER → 2017-04-13 | Outpatient (CLI) | payer OTHER | END | disposition home or self-care (01) | DX: Z53.9 Procedure and treatment not carried out, unspecified reason (principal) ==

== ENCOUNTER → 2017-04-14 | Outpatient (CLI) | payer OTHER ==
[2017-04-14 12:22] LABS: Glucose 67 mg/dL (74-99); Non-African American GFR(MDRD) >60 (>60 ml/min/1.73 sqM)
[2017-04-14 12:31] LABS: CH 30.6; CHCM 33.7; HCT 39.9 % (34.0-46.0); HDW 2.65; HGB 13.4 gm/dL (11.4-16.0); MCH 30.6 pg (25.0-35.0); MCHC 33.5 g/dL (31.0-37.0); MCV 91.2 fL (80.0-100.0); Mean Platelet Volume 7.1; RBC 4.37 m/uL (3.80-5.40); RDW 12.8 % (11.5-15.5); WBC 5.9 k/uL (3.8-10.6)
[2017-04-14 12:55] LABS: Hepatitis B Surface Ag Index 0.05
[2017-04-14 15:42] LABS: Treponemal Ab Non-Reactive (Non-Reactive)
[2017-04-16 05:19] LABS: Toxoplasma Antibody (IgG) <3.0 IU/mL (<7.2)
== END | disposition home or self-care (01) ==
LOC: LABWHC1 11:28
PROVIDERS: ATTEND Obstetrics & Gynecology
DX: Z34.80 Encounter for supervision of other normal pregnancy, unspecified trimester (principal); Z3A.00 Weeks of gestation of pregnancy not specified
CPT/HCPCS: 36415; 82565; 82947; 85027; 86762; 86777; 86778; 86780; 86850; 86900; 86901; 87340; 87390

== ENCOUNTER → 2017-04-15 | Outpatient (CLI) | payer OTHER | END | disposition home or self-care (01) | LOC: LABWHC1 12:31 | PROVIDERS: ATTEND Obstetrics & Gynecology | DX: Z34.80 Encounter for supervision of other normal pregnancy, unspecified trimester (principal); Z3A.00 Weeks of gestation of pregnancy not specified | CPT/HCPCS: 36415; 84702 ==

== ENCOUNTER → 2017-04-17 | Outpatient (CLI) | payer OTHER ==
--- NOTE | 2017-04-17 18:56 | US ---
EXAMINATION TYPE: US OB <=14 wks transvag DATE OF EXAM: 04/17/2017 COMPARISON: Prior in PACS 04/06/2017 CLINICAL HISTORY: Z36 confirm dates and viability. EXAM PERFORMED: Transvaginal (TV) and Transabdominal (TA) EXAM MEASUREMENTS: GESTATIONAL AGE / DATING Physician Established: Not established Dates by LMP: Unsure Dates by First Scan: No previous Dates by Current Scan for: (5 weeks/6 days) EDC: 12/12/2017 MATERNAL ANATOMY Uterus: 8.0 x 5.4 x 6.8 cm Right Ovary: 2.0 x 1.8 x 2.6 cm Left Ovary: 3.7 x 2.4 x 3.1 cm Post CDS / Adnexa: wnl Presence of free fluid: No Presence of corpus luteal cyst: Yes, left ovary measuring 1.9 x 1.3 x 1.5 cm Presence of subchorionic bleed: Yes, measuring 0.6 x 0.3 x 0.8 cm GESTATION / SURVEY CRL: 0.32cm (6 weeks/0 days) MSD: 1.31 cm (5 weeks/4 days) Yolk Sac (normal less than 6mm): 2 mm Heart Rate: 104 bpm Rhythm: Heart rate is low, however this could possibly be due to early gestational age IUP: Viable IUP Date of LMP: Unknown Beta HcG (if available): Not available at time of exam Viable IUP with an VIRIDIANA of 12/12/2017. IMPRESSION: Intrauterine living fetus. The ultrasound gestational age is 5 weeks 6 days. I see no com plicating process.
== END | disposition home or self-care (01) ==
LOC: RADUSMAIN 18:01
PROVIDERS: ATTEND Obstetrics & Gynecology
DX: Z36 Encounter for antenatal screening of mother (principal); Z3A.01 Less than 8 weeks gestation of pregnancy
CPT/HCPCS: 76801; 76817

== ENCOUNTER → 2017-04-27 | Outpatient (CLI) | payer OTHER ==
--- NOTE | 2017-04-27 14:30 | US ---
EXAMINATION TYPE: US OB <= 14 wk fetus DATE OF EXAM: 04/27/2017 COMPARISON: us dated 04/17/2017 CLINICAL HISTORY: O26.89 Abd pain in . EXAM PERFORMED: Transabdominal (TA) EXAM MEASUREMENTS: GESTATIONAL AGE / DATING Physician Established: not yet established Dates by LMP: unknown Dates by First Scan: ( 7 weeks/2 days) EDC: 12/12/17 Dates by Current Scan for: (7 weeks/1 days) EDC: 12/13/16 MATERNAL ANATOMY Uterus: 9.1 x 6.0 x 8.7cm Right Ovary: 2.4 x 1.4 x 2.0cm Left Ovary: 2.8 x 2.1 x 2.1cm Post CDS / Adnexa: wnl Presence of free fluid: wnl GESTATION / SURVEY CRL: 1.1 (7 weeks/1 days) Yolk Sac (normal less than 6mm): 2mm Heart Rate: 162 bpm Rhythm: Normal IUP: Viable IUP Date of LMP: unknown Beta HcG (if available): not available IMPRESSION: Single live intrauterine with heart rate of 162 bpm, sonographic age of 7 weeks and 1 day a nd estimated date of delivery of 12/13/2016. Dates are concordant with the ultrasound of 04/17/2017.
== END | disposition home or self-care (01) ==
LOC: RADUSWWP 13:56
PROVIDERS: ATTEND Obstetrics & Gynecology
DX: O26.891 Other specified pregnancy related conditions, first trimester (principal); Z3A.01 Less than 8 weeks gestation of pregnancy
CPT/HCPCS: 76801

== ENCOUNTER 2017-10-12 20:25 | Emergency (ER) | payer OTHER ==
[2017-10-12] MEDS ORDERED: ACETAMINOPHEN TAB 325 MG TAB PO STA (21:20)
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
[2017-10-12 22:01] VITALS: BP 116/61; PULSE 93; RESP 18; TEMP 98
== END 2017-10-12 22:17 | disposition home or self-care (01) ==
LOC: EC 20:25
DX: O9A.213 Injury, poisoning and certain other consequences of external causes complicating pregnancy, third trimester (principal); T21.11XA Burn of first degree of chest wall, initial encounter; T21.12XA Burn of first degree of abdominal wall, initial encounter; T31.0 Burns involving less than 10% of body surface; Z3A.32 32 weeks gestation of pregnancy; Z87.891 Personal history of nicotine dependence; Y92.009 Unspecified place in unspecified non-institutional (private) residence as the place of occurrence of the external cause
CPT/HCPCS: 16020; 99283

== ENCOUNTER 2017-12-12 23:52 | Inpatient (IN) | payer OTHER ==
[2017-12-13] MEDS ORDERED: LIDOCAINE 1% (PF) 10 MG/ML (30 ML SDV) SQ PRN (02:34)
[2017-12-13] MEDS ORDERED: OXYTOCIN 10 UNIT/ML 1 ML VIAL IM PRN (02:34)
[2017-12-13] MEDS ORDERED: CARBOPROST TROMETHAMINE 250 MCG/ML 1 ML AMP IM PRN (02:34)
[2017-12-13] MEDS ORDERED: METHYLERGONOVINE 0.2 MG/ML 1 ML AMP IM PRN (02:34)
[2017-12-13] MEDS ORDERED: TERBUTALINE 1 MG/ML VIAL SQ PRN (02:34)
[2017-12-13] MEDS ORDERED: LACTATED RINGERS 1,000 ML IV SCH (02:45)
[2017-12-13 02:50] LABS: Basophils % (A) 0 %; Eosinophils # (A) 0.3 k/uL (0-0.7); Eosinophils % (A) 2 %; HCT 35.5 % (34.0-46.0); HGB 11.5 gm/dL (11.4-16.0); Hypochromasia Slight; Lymphocytes % (A) 24 %; MCH 27.1 pg (25.0-35.0); MCHC 32.4 g/dL (31.0-37.0); MCV 83.7 fL (80.0-100.0); Mean Platelet Volume 7.6; Monocytes # (A) 0.7 k/uL (0-1.0); Monocytes % (A) 5 %; Neutrophils # (A) 8.4 k/uL (1.3-7.7); Neutrophils % (A) 66 %; Platelet Count 320 k/uL (150-450); RBC 4.24 m/uL (3.80-5.40); RDW 13.3 % (11.5-15.5); WBC 12.7 k/uL (3.8-10.6)
[2017-12-13] MEDS: BUTORPHANOL 1 MG/ML 1 ML VIAL IV PRN ×2 (03:42→05:32)
--- NOTE | 2017-12-13 06:32 | P.HPOB ---
History of Present Illness H&P Date: 12/13/17 Chief Complaint: Contractions This is a 22-year-old female 2 para 1 with an estimated date of confinement of 12/13/2017, estimated gestational age of 40-0/7 weeks, who presents to labor and delivery with complaints of contractions since 5 PM yesterday evening. She denies any rupture of membranes. Her course has been uncomplicated per patient. care has been with Dr. Ndiaye. labs: Toxoplasma-negative HIV-nonreactive Rubella-immune Syphilis antibody-nonreactive GC/chlamydia-negative Obstetrical ultrasound-normal anatomy One hour Glucola-83 Group B streptococcus-negative Obstetrical history: . History of 1 vaginal delivery at term. Gynecologic history: No history of sexually transmitted diseases. Social history: She is single. Review of Systems Constitutional: Denies chills, Denies fever Eyes: denies blurred vision, denies pain Ears, nose, mouth and throat: Denies headache, Denies sore throat Cardiovascular: Denies chest pain, Denies shortness of breath Respiratory: Denies cough Gastrointestinal: Reports abdominal pain (Contractions) Genitourinary: Reports pelvic pain Musculoskeletal: Reports low back pain Integumentary: Denies pruritus, Denies rash Neurological: Denies numbness, Denies weakness Psychiatric: Reports anxiety, Reports depression Past Medical History Past Medical History: Syncope Additional Past Medical History / Comment(s): back pain History of Any Multi-Drug Resistant Organisms: None Reported Past Surgical History: Appendectomy Additional Past Surgical History / Comment(s): bilat bottom wisdom teeth extraction Past Anesthesia/Blood Transfusion Reactions: No Reported Reaction Past Psychological History: Anxiety, Bipolar, Depression Additional Psychological History / Comment(s): not medicated Smoking Status: Never smoker Past Alcohol Use History: None Reported Past Drug Use History: None Reported Additional Drug Use History / Comment(s): There is a note in the patient's record dated 11/27/2017 that states patient states smoked marijuana last 2 months ago. - Past Family History Mother Family Medical History: No Reported History Medications and Allergies Home Medications Medication Instructions Recorded Confirmed Type Ranitidine HCl [Zantac] 150 mg PO BID 12/13/17 12/13/17 History Allergies Allergy/AdvReac Type Severity Reaction Status Date / Time No Known Allergies Allergy Verified 12/13/17 00:00 Exam Osteopathic Statement: *. No significant issues noted on an osteopathic structural exam other than those noted in the History and Physical/Consult. - Vital Signs Vital signs: Vital Signs Temp Pulse Resp BP Pulse Ox 12/13/17 02:31 96.7 F L 93 18 116/67 12/13/17 01:50 97.3 F L 93 18 112/70 97 Intake and Output 12/12/17 12/12/17 12/13/17 14:59 22:59 06:59 Other: # Voids 1 Weight 74.843 kg HEENT: Within normal limits Heart: Regular rate and rhythm Lungs: Clear to auscultation bilaterally Abdomen: Cervix: Initially was 3-4 cm/70%/-2 heart tones: Reactive Contractions: Every 2-3 minutes Extremities: Negative Homans Results Result Diagrams: 12/13/17 02:30 Abnormal Lab Results - Last 24 Hours (Table) 12/13/17 Range/Units 02:30 WBC 12.7 H (3.8-10.6) k/uL Neutrophils # 8.4 H (1.3-7.7) k/uL Assessment and Plan (1) 40 weeks gestation of Current Visit: Yes Status: Acute Code(s): Z3A.40 - 40 WEEKS GESTATION OF SNOMED Code(s): 34141992 Plan: Admission for active labor. Expectant management.
--- NOTE | 2017-12-13 07:32 | P.PROBDLV ---
Vaginal Delivery Note - . Vaginal Delivery Note: The patient progressed to complete dilation after artificial rupture membranes with clear fluid noted. She did receive Stadol while in labor. 3 reaching complete dilation, she began pushing. 's head came to a crown. With one further push, the 's head delivered across the perineum followed immediately by the remainder the body. Nuchal cord times one was reduced around the with delivery. was placed on mother's abdomen. Nose and mouth were bulb suctioned and then cord was clamped and cut. was taken to warmer for evaluation. A viable male was noted with scores of 9 at 1 minute and 9 at 5 minutes. Infant weight was 7 lbs. 12 oz. Placenta delivered shortly thereafter, intact, with a three-vessel cord. Uterus contracted fairly well after oxytocin was given and uterine massage was carried out. Inspection of the perineum revealed a right periurethral laceration. This area was anesthetized with 1% lidocaine and then sutured with 3-0 Vicryl suture in a running locked fashion. Estimated blood loss is approximately 200 mL's. Both mother and infant are in stable condition.
[2017-12-13] MEDS ORDERED: OXYTOCIN 20 UNITS/1000 ML NS 1,000 ML IV SCH (07:53)
[2017-12-13] MEDS ORDERED: BENZOCAINE/MENTHOL SPRAY 1 GM/SPRAY AEROSOL TOPICAL PRN (07:53)
[2017-12-13] MEDS ORDERED: diphenhydrAMINE 50 MG/ML 1 ML VIAL IVP PRN ×2 (07:53)
[2017-12-13] MEDS ORDERED: LANOLIN CREAM 5 GM TUBE TOPICAL PRN (07:53)
[2017-12-13] MEDS ORDERED: SIMETHICONE 80 MG CHEWABLE PO PRN (07:53)
[2017-12-13] MEDS ORDERED: HYDROCORTISONE 2.5% RECTAL CREAM 30 GM TUBE RECTAL PRN (07:53)
[2017-12-13] MEDS ORDERED: WITCH HAZEL 1 EACH MED..PAD TOPICAL PRN (07:53)
[2017-12-13] MEDS ORDERED: diphenhydrAMINE 50 MG CAP PO PRN (07:53)
[2017-12-13] MEDS ORDERED: ZOLPIDEM 5 MG TAB PO PRN (07:53)
[2017-12-13] MEDS ORDERED: diphenhydrAMINE 25 MG CAP PO PRN (07:53)
[2017-12-13] MEDS ORDERED: ACETAMINOPHEN TAB 325 MG TAB PO PRN (07:53)
[2017-12-13] MEDS ORDERED: IBUPROFEN 600 MG TAB PO PRN (07:53)
[2017-12-13] MEDS: SENNOSIDES-DOCUSATE SODIUM 1 EACH TAB PO SCH (08:31)
[2017-12-13] MEDS: OXYTOCIN 20 UNITS/1000 ML NS 1,000 ML IV SCH ×2 (08:32→09:08)
[2017-12-13] MEDS: FAMOTIDINE 20 MG TAB PO SCH (16:11)
[2017-12-14] MEDS: FAMOTIDINE 20 MG TAB PO SCH ×2 (00:35→12:06)
[2017-12-14] MEDS: SENNOSIDES-DOCUSATE SODIUM 1 EACH TAB PO SCH ×3 (00:35→12:05)
--- NOTE | 2017-12-14 08:54 | P.DS ---
Providers Date of admission: 12/13/17 01:56 Expected date of discharge: 12/14/17 Attending physician: Jailene Ndiaye Primary care physician: Stated None - Discharge Diagnosis(es) (1) Normal vaginal delivery Current Visit: No Status: Acute Hospital Course: Patient presented in active labor. She underwent a normal vaginal delivery. Her course was uncomplicated. She'll be discharged home day #1 in stable condition follow-up with me in 6 weeks. Plan - Discharge Summary New Discharge Prescriptions: No Action Ranitidine HCl [Zantac] 150 mg PO BID Discharge Medication List Ranitidine HCl [Zantac] 150 mg PO BID 12/13/17 [History] Follow up Appointment(s)/Referral(s): Jailene Ndiaye DO [Doctor of Osteopathic Medicine] - 6 Weeks Discharge Disposition: HOME SELF-CARE
[2017-12-14 09:20] VITALS: BP 93/64; PULSE 65; RESP 17; TEMP 98.4
[2017-12-14 10:03] LABS: Basophils % (A) 0 %; Eosinophils # (A) 0.3 k/uL (0-0.7); Eosinophils % (A) 2 %; HCT 32.5 % (34.0-46.0); HGB 10.5 gm/dL (11.4-16.0); Hypochromasia Slight; Lymphocytes % (A) 19 %; MCH 27.1 pg (25.0-35.0); MCHC 32.3 g/dL (31.0-37.0); MCV 83.9 fL (80.0-100.0); Mean Platelet Volume 8.2; Monocytes % (A) 6 %; Neutrophils # (A) 11.5 k/uL (1.3-7.7); Neutrophils % (A) 72 %; Platelet Count 311 k/uL (150-450); RBC 3.88 m/uL (3.80-5.40); RDW 13.6 % (11.5-15.5); WBC 15.9 k/uL (3.8-10.6)
== END 2017-12-14 14:00 | disposition home or self-care (01) | DRG 775 ==
LOC: FBPOP 23:52 → 4FBP 12-13 01:56
PROVIDERS: ADMIT Obstetrics & Gynecology; ATTEND Obstetrics & Gynecology
PROC: 10E0XZZ Delivery of Products of Conception, External Approach (ICD-10-PCS; principal; 2017-12-13)
PROC: 0UQMXZZ Repair Vulva, External Approach (ICD-10-PCS; 2017-12-13)
PROC: 10907ZC Drainage of Amniotic Fluid, Therapeutic from Products of Conception, Via Natural or Artificial Opening (ICD-10-PCS; 2017-12-13)
DX: O48.0 Post-term pregnancy (principal); O69.81X0 Labor and delivery complicated by cord around neck, without compression, not applicable or unspecified; O71.82 Other specified trauma to perineum and vulva; Z3A.40 40 weeks gestation of pregnancy; Z90.89 Acquired absence of other organs; Z86.59 Personal history of other mental and behavioral disorders; Z37.0 Single live birth
CPT/HCPCS: 59025; 85025; 88307; 99213

== ENCOUNTER 2018-05-03 21:20 | Emergency (ER) | payer OTHER ==
--- NOTE | 2018-05-03 23:02 | XR ---
EXAMINATION TYPE: XR elbow complete LT DATE OF EXAM: 05/03/2018 COMPARISON: NONE HISTORY: Elbow pain TECHNIQUE: 3 views FINDINGS: I see no fracture nor dislocation. Joint spaces are normal. There is no sign of elbow joint effusion. IMPRESSION: Negative left elbow exam.
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
[2018-05-03 23:20] VITALS: BP 115/72; PULSE 57; RESP 16; TEMP 98
== END 2018-05-03 23:22 | disposition home or self-care (01) ==
LOC: EC 21:20
DX: S50.02XA Contusion of left elbow, initial encounter (principal); W51.XXXA Accidental striking against or bumped into by another person, initial encounter; Y93.89 Activity, other specified
CPT/HCPCS: 99283

== ENCOUNTER 2018-10-06 14:57 | Emergency (ER) | payer OTHER ==
--- NOTE | 2018-10-06 15:59 | ED ---
General Adult HPI - General Chief complaint: Vaginal Bleeding Stated complaint: Vaginal Bleeding,IUD placement Time Seen by Provider: 10/06/18 15:15 Source: patient, RN notes reviewed Mode of arrival: ambulatory Limitations: no limitations - History of Present Illness Initial comments: 23-year-old female presents to the emergency department for a chief complaint of pelvic cramping 2 days. Patient states she had an IUD placed last week. She states that she waited 4 days to have intercourse however after intercourse states she had significant pain. She has had mild bleeding noted since that time with minimal clotting. Patient states she had an outpatient ultrasound scheduled at 4 PM but since she arrived early at 2:30 PM she figured it would be faster to get ultrasound through the emergency department. Patient has no other complaints at this time including shortness of breath, chest pain, nausea or vomiting, headache, or visual changes. - Related Data Home Medications Medication Instructions Recorded Confirmed No Known Home Medications 05/03/18 10/06/18 Allergies Allergy/AdvReac Type Severity Reaction Status Date / Time No Known Allergies Allergy Verified 10/06/18 16:10 Review of Systems ROS Statement: Those systems with pertinent positive or pertinent negative responses have been documented in the HPI. ROS Other: All systems not noted in ROS Statement are negative. Past Medical History Past Medical History: Syncope Additional Past Medical History / Comment(s): back pain History of Any Multi-Drug Resistant Organisms: None Reported Past Surgical History: Appendectomy Additional Past Surgical History / Comment(s): bilat bottom wisdom teeth extraction Past Anesthesia/Blood Transfusion Reactions: No Reported Reaction Past Psychological History: Anxiety, Bipolar, Depression, PTSD Smoking Status: Never smoker Past Alcohol Use History: Occasional Past Drug Use History: Marijuana - Past Family History Mother Family Medical History: No Reported History General Exam Limitations: no limitations General appearance: alert, in no apparent distress Head exam: Present: atraumatic, normocephalic, normal inspection Eye exam: Present: normal appearance, PERRL, EOMI. Absent: scleral icterus, conjunctival injection, periorbital swelling ENT exam: Present: normal exam, mucous membranes moist Neck exam: Present: normal inspection, full ROM. Absent: tenderness, meningismus, lymphadenopathy Respiratory exam: Present: normal lung sounds bilaterally. Absent: respiratory distress, wheezes, rales, rhonchi, stridor Cardiovascular Exam: Present: regular rate, normal rhythm, normal heart sounds. Absent: systolic murmur, diastolic murmur, rubs, gallop, clicks GI/Abdominal exam: Present: soft, normal bowel sounds. Absent: distended, tenderness (No significant tenderness noted in the lower abdomen), guarding, rebound, rigid External exam: Present: normal external exam. Absent: erythema, swelling, lesions, lacerations, ecchymosis Speculum exam: Present: vaginal bleeding. Absent: normal speculum exam, other ( Unable to visualize IUD strings.) By manual exam: Present: adnexal tenderness, uterine tenderness. Absent: normal by manual exam Neurological exam: Present: alert, oriented X3, CN II-XII intact Psychiatric exam: Present: normal affect, normal mood Course Vital Signs 10/06/18 15:04 Temperature 98.1 F Pulse Rate 89 Respiratory 16 Rate Blood Pressure 121/77 O2 Sat by Pulse 99 Oximetry - Reevaluation(s) Reevaluation #1: 10/06/18 16:21 pt refusing pain medications, states she had both her children without pain meds and doesnt need it Medical Decision Making - Medical Decision Making 23-year-old female presents for vaginal bleeding and cramping 2 days. Patient had an IUD placed 1 week ago. Patient had intercourse 2 days ago and since that time and had vaginal cramping and bleeding. Patient did not want any lab work done as she only came here for an ultrasound because she thought it would be faster than getting the ultrasound done outpatient that she had scheduled. She does not feel dizzy, no chest pain or shortness of breath. Ultrasound shows a complex right ovarian cyst. IUD is in good position. Minimal free fluid without evidence of ovarian torsion. At this time cyst could be causing pain but also likely that IUD is causing pain. She will need to follow up with her RADIATOR REPAIRER. Patient will return here if she has any worsening symptoms. - Lab Data Lab Results 10/06/18 10/06/18 Range/Units 16:00 16:00 Urine Color Yellow Urine Appearance Clear (Clear) Urine pH 7.5 (5.0-8.0) Ur Specific [place] 1.007 (1.001-1.035) Urine Protein Negative (Negative) Urine Glucose (UA) Negative (Negative) Urine Ketones Negative (Negative) Urine Blood Moderate H (Negative) Urine Nitrite Negative (Negative) Urine Bilirubin Negative (Negative) Urine Urobilinogen <2.0 (<2.0) mg/dL Ur Leukocyte Esterase Negative (Negative) Urine RBC 3 (0-5) /hpf Urine WBC 3 (0-5) /hpf Ur Squamous Epith Cells 2 (0-4) /hpf Amorphous Sediment Rare H (None) /hpf Urine Bacteria Rare H (None) /hpf Urine Mucus Rare H (None) /hpf Urine HCG, Qual Not Detected (Not Detectd) Disposition Clinical Impression: IUD (intrauterine device) in place, Ovarian cyst Disposition: HOME SELF-CARE Condition: Good Instructions (If sedation given, give patient instructions): Pelvic Pain in Women (ED), Ovarian Cyst (ED) Additional Instructions: Please take Motrin and Tylenol for pain. Please follow-up with Dr. Dash for tomorrow. Please return here to the emergency department if you have any worsening symptoms. Is patient prescribed a controlled substance at d/c from ED?: No Referrals: Malathi Conteh MD [STAFF PHYSICIAN] - 1-2 days Time of Disposition: 17:39
[2018-10-06 16:21] LABS: Amorphous Sediment,Urine Rare /hpf; Appearance,Urine Clear (Clear); Bacteria,Urine Rare /hpf; Bilirubin,Urine Negative (Negative); Blood,Urine Moderate (Negative); Color,Urine Yellow; Glucose,Urine (UA) Negative (Negative); Ketones,Urine Negative (Negative); Leukocyte Esterase,Urine Negative (Negative); Mucus,Urine Rare /hpf; Nitrite,Urine Negative (Negative); PH, Urine 7.5 (5.0-8.0); Protein,Urine Negative (Negative); RBC,Urine 3 /hpf (0-5); Specific Gravity,Urine 1.007 (1.001-1.035); Squamous Epithelial Cell,Urine 2 /hpf (0-4); Urobilinogen,Urine <2.0 mg/dL (<2.0); WBC,Urine 3 /hpf (0-5)
--- NOTE | 2018-10-06 17:04 | US ---
EXAMINATION TYPE: US transvaginal DATE OF EXAM: 10/06/2018 COMPARISON: NONE CLINICAL HISTORY: Pain. Pelvic pain, IUD placement 09/28/18 TECHNIQUE: Transvaginal (TV). Date of LMP: 09/21/18 EXAM MEASUREMENTS: Uterus: 8.2 x 4.0 x 4.8 cm Endometrial Stripe: 0.8 cm Right Ovary: 3.3 x 2.4 x 2.3 cm Left Ovary: 3.0 x 2.1 x 2.0 cm 1. Uterus: Anteverted 2. Endometrium: IUD visualized within fundus/body 3. Right Ovary: complex cystic area = 2.0 x 1.7 x 1.7cm 4. Left Ovary: follicles noted Spectral, color and waveform doppler imaging shows good arterial and venous flow within the ovaries ; there is no evidence for ovarian torsion. 5. Bilateral Adnexa: small amount of free fluid right adnexa adjacent to right ovary 6. Posterior cul-de-sac: wnl IMPRESSION: Complex right ovarian cyst. Normal uterus and endometrium. IUD is in good position. Minim al free fluid. No evidence of ovarian torsion.
[2018-10-06 18:01] VITALS: BP 117/76; PULSE 76; RESP 18; TEMP 98.2
== END 2018-10-06 18:01 | disposition home or self-care (01) ==
LOC: EC 14:57
DX: N83.201 Unspecified ovarian cyst, right side (principal); Z97.5 Presence of (intrauterine) contraceptive device
CPT/HCPCS: 76830; 81001; 81025; 93975; 99284

== ENCOUNTER 2019-03-07 21:43 | Emergency (ER) | payer OTHER ==
[2019-03-07 21:51] VITALS: RESP 20
--- NOTE | 2019-03-07 22:36 | ED ---
General Adult HPI - General Chief complaint: Skin/Abscess/Foreign Body Stated complaint: Female Time Seen by Provider: 03/07/19 22:04 Source: patient Mode of arrival: ambulatory Limitations: no limitations - History of Present Illness Initial comments: 23-year-old female patient presents to the emergency department today for evaluation of pain and tenderness to her right labia. Patient is also requesting sexually transmitted infection testing. Patient states that over the last week she has noticed a painful area to the right lower labia. Patient states it [place] when she please and when she applies soap to the region. She denies any drainage. States that she does shave and may have an ingrown hair. She denies any fever or chills with this. Patient states that she has had multiple sexual partners and she is concerned for sexually transmitted infections. States that she has had mild increase in discharge and odor. She denies any itching. Denies any chance of . States she has an IUD implanted. Denies any fever or chills. Denies any hematuria, dysuria, urinary urgency, urinary frequency. Denies any abdominal pain or back pain. - Related Data Home Medications Medication Instructions Recorded Confirmed No Known Home Medications 05/03/18 03/07/19 Allergies Allergy/AdvReac Type Severity Reaction Status Date / Time No Known Allergies Allergy Verified 03/07/19 22:34 Review of Systems ROS Statement: Those systems with pertinent positive or pertinent negative responses have been documented in the HPI. ROS Other: All systems not noted in ROS Statement are negative. Past Medical History Past Medical History: Syncope Additional Past Medical History / Comment(s): back pain History of Any Multi-Drug Resistant Organisms: None Reported Past Surgical History: Appendectomy Additional Past Surgical History / Comment(s): bilat bottom wisdom teeth extraction Past Anesthesia/Blood Transfusion Reactions: No Reported Reaction Past Psychological History: Anxiety, Bipolar, Depression, PTSD Smoking Status: Never smoker Past Alcohol Use History: Occasional Past Drug Use History: Marijuana - Past Family History Mother Family Medical History: No Reported History General Exam Limitations: no limitations General appearance: alert, in no apparent distress, other (This is a well- developed, well-nourished adult female patient in no acute distress. Vital signs upon presentation are temperature 98.2F, pulse 95, respirations 20, blood pressure 129/80, pulse ox 96% on room air.) Eye exam: Present: normal appearance, PERRL, EOMI. Absent: scleral icterus, conjunctival injection, periorbital swelling ENT exam: Present: normal exam, normal oropharynx, mucous membranes moist Respiratory exam: Present: normal lung sounds bilaterally. Absent: respiratory distress, wheezes, rales, rhonchi, stridor Cardiovascular Exam: Present: regular rate, normal rhythm, normal heart sounds. Absent: systolic murmur, diastolic murmur, rubs, gallop, clicks GI/Abdominal exam: Present: soft, normal bowel sounds. Absent: distended, tenderness, guarding, rebound, rigid External exam: Present: lacerations (There is tiny laceration noted to the right lower labia majora. There is no surrounding erythema or evidence of drainage. No swelling or induration.). Absent: normal external exam Speculum exam: Present: normal speculum exam, vaginal bleeding (Small amount of vaginal bleeding, red in color). Absent: vaginal discharge, cervical discharge By manual exam: Present: normal by manual exam Neurological exam: Present: alert, oriented X3, CN II-XII intact Psychiatric exam: Present: normal affect, normal mood Skin exam: Present: warm, dry, intact, normal color. Absent: rash Course Vital Signs 03/07/19 03/07/19 21:48 22:51 Temperature 98.2 F 98.3 F Pulse Rate 95 83 Respiratory 20 20 Rate Blood Pressure 129/80 118/67 O2 Sat by Pulse 96 99 Oximetry Medical Decision Making - Medical Decision Making 23-year-old female patient presents to the emergency department today for evaluation of pain and tenderness to the right lower labia majora. She is also requesting sexually transmitted infection testing. Physical examination did reveal a small laceration to the right lower labia majora. Patient was this could be from shaving. There is no evidence of infection or surrounding erythema. Pelvic examination was performed, there is some mild vaginal bleeding but no abnormal discharge. No cervical erythema or friability.'s cultures were obtained and sent to lab. We did discuss the patient will be called with any abnormal results. We discussed laceration as a cause for her pain and symptoms. She is instructed to do warm sitz baths. She is instructed to keep the area clean and dry. She is instructed to follow-up with her primary care physician as well as her freight delivery driver for further evaluation as soon as possible. Return parameters were discussed in detail. She verbalizes understanding and agrees with this plan. - Lab Data Lab Results 03/07/19 Range/Units 22:40 Trichomonas Ag (Rapid) Negative (Negative) Disposition Clinical Impression: Labial abrasion, Concern about sexually transmitted disease in female without diagnosis Disposition: HOME SELF-CARE Condition: Good Instructions (If sedation given, give patient instructions): Safe Sex (ED), Abrasion (ED) Additional Instructions: Follow-up on your cultures in 3 days. Do warm sitz bath's to 8 a healing of your wound. Follow-up with your MANAGER FOREIGN and her primary care physician for recheck as soon as possible. Return to the emergency department immediately for any new, worsening, or concerning symptoms. Is patient prescribed a controlled substance at d/c from ED?: No Referrals: None,Stated [Primary Care Provider] - 1-2 days Time of Disposition: 22:36
[2019-03-07 22:52] VITALS: BP 118/67; PULSE 83; TEMP 98.3
== END 2019-03-07 22:52 | disposition home or self-care (01) ==
LOC: EC 21:43
DX: S30.814A Abrasion of vagina and vulva, initial encounter (principal)
CPT/HCPCS: 87070; 87205; 87491; 87591; 87808; 99283

== ENCOUNTER 2019-05-27 13:24 | Emergency (ER) | payer OTHER ==
[2019-05-27 13:33] VITALS: TEMP 97.7
[2019-05-27] MEDS ORDERED: DEXAMETHASONE SOD PHOSPHATE 10 MG/ML 1 ML VIAL IM STA (13:53)
[2019-05-27 14:38] VITALS: BP 110/60; PULSE 67; RESP 16
--- NOTE | 2019-05-27 14:39 | ED ---
General Adult HPI - General Chief complaint: Skin/Abscess/Foreign Body Stated complaint: poss allergic reaction Time Seen by Provider: 05/27/19 13:44 Source: patient Mode of arrival: ambulatory - History of Present Illness Initial comments: Patient is a 23-year-old female presenting to the emergency department with chief complaint of a rash. Patient reports she developed a rash yesterday. Patient reports it was sudden onset of a rash that initially started on the neck and has spread throughout the body. Patient reports the rash is itchy. Patient denies any fevers or chills. Patient reports all her vaccinations are up-to-date. Patient reports taking an antibiotic for UTI which she finished 3 days ago prior to the onset of the symptoms. Patient denies taking any other medication to alleviate the symptoms. Patient denies any changes to hygiene products. Patient denies shortness of breath, dyspnea dysphagia. - Related Data Previous Rx's Medication Instructions Recorded predniSONE 50 mg PO DAILY #3 tab 05/27/19 Allergies Allergy/AdvReac Type Severity Reaction Status Date / Time No Known Allergies Allergy Verified 05/27/19 13:33 Review of Systems ROS Statement: Those systems with pertinent positive or pertinent negative responses have been documented in the HPI. ROS Other: All systems not noted in ROS Statement are negative. Past Medical History Past Medical History: Syncope Additional Past Medical History / Comment(s): back pain History of Any Multi-Drug Resistant Organisms: None Reported Past Surgical History: Appendectomy Additional Past Surgical History / Comment(s): bilat bottom wisdom teeth extraction Past Anesthesia/Blood Transfusion Reactions: No Reported Reaction Past Psychological History: Anxiety, Bipolar, Depression, PTSD Smoking Status: Current some day smoker Past Alcohol Use History: Occasional Past Drug Use History: Marijuana - Past Family History Mother Family Medical History: No Reported History General Exam Limitations: no limitations General appearance: alert, in no apparent distress Head exam: Present: atraumatic, normocephalic, normal inspection Eye exam: Present: normal appearance, PERRL, EOMI Pupils: Present: normal accommodation ENT exam: Present: normal exam, mucous membranes moist, normal external ear exam Neck exam: Present: normal inspection, full ROM Respiratory exam: Present: normal lung sounds bilaterally Cardiovascular Exam: Present: regular rate, normal rhythm, normal heart sounds Extremities exam: Present: normal inspection, full ROM Back exam: Present: normal inspection, full ROM Neurological exam: Present: alert, oriented X3 Psychiatric exam: Present: normal affect, normal mood Skin exam: Present: warm, intact, normal color, rash (Generalized raised ur ticarial rash. ) Course Vital Signs 05/27/19 05/27/19 13:31 14:36 Temperature 97.7 F Pulse Rate 85 67 Respiratory 20 16 Rate Blood Pressure 114/77 110/60 O2 Sat by Pulse 99 99 Oximetry Medical Decision Making - Medical Decision Making Patient is a 23-year-old female presenting to the emergency department with a chief complaint of a rash. The rash started yesterday and it is itchy. On physical examination this appears to be an urticarial rash that is elevated. There is no fevers or chills. Rest of physical examination is unremarkable. Patient will be given steroids and discharged with another 3 days of prednisone. Strict return parameters were thoroughly discussed the patient is understanding and agreeable. Case discussed with physician. Disposition Clinical Impression: Urticaria Disposition: HOME SELF-CARE Condition: Stable Instructions (If sedation given, give patient instructions): Urticaria (ED) Additional Instructions: Please take prescribed medication as directed. Please follow with primary care. Please return to emergency department if symptoms worsen. Prescriptions: predniSONE 50 mg PO DAILY #3 tab Is patient prescribed a controlled substance at d/c from ED?: No Referrals: None,Stated [Primary Care Provider] - 1-2 days Time of Disposition: 14:39
== END 2019-05-27 14:50 | disposition home or self-care (01) ==
LOC: EC 13:24
DX: L50.9 Urticaria, unspecified (principal); F17.200 Nicotine dependence, unspecified, uncomplicated
CPT/HCPCS: 99282; 96372; J1100

== ENCOUNTER 2019-05-29 14:14 | Emergency (ER) | payer OTHER ==
[2019-05-29 14:37] VITALS: RESP 18
[2019-05-29] MEDS ORDERED: methylPREDNISolone SOD SUCCI 125 MG/2 ML VIAL IM ONE (15:03)
[2019-05-29] MEDS ORDERED: FAMOTIDINE 20 MG TAB PO STA (15:04)
[2019-05-29] MEDS ORDERED: diphenhydrAMINE 50 MG CAP PO STA (15:04)
--- NOTE | 2019-05-29 15:16 | ED ---
Allergic Reaction HPI - General Chief complaint: Allergic Reaction Stated complaint: Allergic reaction Time Seen by Provider: 05/29/19 14:52 Source: patient, RN notes reviewed, old records reviewed Mode of arrival: ambulatory Limitations: no limitations - History of Present Illness Initial Comments: This patient's a 23-year-old female presents emergency Department today for reevaluation for continued hives, and pruritic-like rash over her arms and back and face. Patient reports that she was seen 3 days ago and was treated at that time with steroids and Benadryl. She has not been taking the brunt of prednisone and Benadryl since that time. Patient reports it seemed to go away for a short while but then returned again today. She denies any new history of contacts weeks of new exposures. She denies any other significant complaints. - Related Data Previous Rx's Medication Instructions Recorded predniSONE 50 mg PO DAILY #3 tab 05/27/19 Famotidine [Pepcid] 20 mg PO BID #10 tablet 05/29/19 diphenhydrAMINE [Benadryl] 25 mg PO QID PRN #20 capsule 05/29/19 predniSONE 10 mg PO DAILY #15 tab 05/29/19 Allergies Allergy/AdvReac Type Severity Reaction Status Date / Time No Known Allergies Allergy Verified 05/29/19 14:37 Review of Systems ROS Statement: Those systems with pertinent positive or pertinent negative responses have been documented in the HPI. ROS Other: All systems not noted in ROS Statement are negative. Past Medical History Past Medical History: Syncope Additional Past Medical History / Comment(s): back pain History of Any Multi-Drug Resistant Organisms: None Reported Past Surgical History: Appendectomy Additional Past Surgical History / Comment(s): bilat bottom wisdom teeth extraction Past Anesthesia/Blood Transfusion Reactions: No Reported Reaction Past Psychological History: Anxiety, Bipolar, Depression, PTSD Smoking Status: Current some day smoker Past Alcohol Use History: Occasional Past Drug Use History: Marijuana - Past Family History Mother Family Medical History: No Reported History General Exam - General Exam Comments Initial Comments: 23-year-old female. Alert and oriented 3. Patient appears in no distress. Patient is pleasant. General: Well appearing, well nourished, in no distress. Oriented x 3, normal mood and affect . Ambulating without difficulty. Skin: Good turgor, numbness, pruritic macular areas over the neck face and chest consistent with hives. Hair: Normal texture and distribution. HEENT: Head: Normocephalic, atraumatic, no visible or palpable masses, depressions, or scaring. Eyes: Visual acuity intact, conjunctiva clear, sclera non-icteric, EOM intact, PERRL. Mouth: Mucous membranes moist, no mucosal lesions. Teeth/Gums: No obvious caries or periodontal disease. No signs of angioedema. No gingival inflammation or significant resorption. Pharynx: Mucosa non-inflamed, no tonsillar hypertrophy or exudate Neck: Supple, hives noted upper posterior neck. Heart: No cardiomegaly or thrills; regular rate and rhythm, no murmur or gallop Lungs: Clear to auscultation and percussion Extremities: No amputations or deformities, cyanosis, edema or varicosities, peripheral pulses intact Musculoskeletal: Normal gait and station. No misalignment, asymmetry, crepitation, defects, tenderness, masses, effusions, decreased range of motion, instability, atrophy or abnormal strength or tone in the head, neck, spine, ribs, pelvis or extremities. Neurologic: CN 2-12 normal. Sensation to pain, touch, and proprioception normal. DTRs normal in upper and lower extremities. No pathologic reflexes. Psychiatric: Oriented X3, intact recent and remote memory, judgment and insight, normal mood and affect. Limitations: no limitations Course Vital Signs 05/29/19 05/29/19 14:33 16:16 Temperature 98.1 F 98.5 F Pulse Rate 100 79 Respiratory 18 18 Rate Blood Pressure 109/68 108/67 O2 Sat by Pulse 99 100 Oximetry Medical Decision Making - Medical Decision Making This is a 23-year-old female, she presents emergency department today for evaluation for evaluation for another episode of hives. She was seen in emergency department 3 days ago. She has not taken her steroids and Benadryl since that time. She denies any new contacts. This time Patient is given IM slightly Medrol, Benadryl and Pepcid. Discussed that she needs to take the steroids to prevent this from continuing to happen. Patient was advised to follow-up with an manufacturing planner. The Patient is discharged Patient stated that she question if she may have urinary tract infection. She states that occasionally morton with urination but denies any vaginal discharge. Patient had urinalysis which is negative for infection. We did run a urinalysis for, and gonorrhea testing. I discussed the Patient follow-up with her primary care doctor's as well. All questions were answered. - Lab Data Lab Results 05/29/19 05/29/19 Range/Units 15:34 15:34 Urine Color Yellow Urine Appearance Cloudy H (Clear) Urine pH 8.0 (5.0-8.0) Ur Specific [place] 1.021 (1.001-1.035) Urine Protein Trace H (Negative) Urine Glucose (UA) Negative (Negative) Urine Ketones Negative (Negative) Urine Blood Negative (Negative) Urine Nitrite Negative (Negative) Urine Bilirubin Negative (Negative) Urine Urobilinogen <2.0 (<2.0) mg/dL Ur Leukocyte Esterase Trace H (Negative) Urine RBC 1 (0-5) /hpf Urine WBC 3 (0-5) /hpf Ur Squamous Epith Cells 5 H (0-4) /hpf Urine Mucus Rare H (None) /hpf Urine HCG, Qual Not Detected (Not Detectd) Disposition Clinical Impression: Urticaria Disposition: HOME SELF-CARE Condition: Good Instructions (If sedation given, give patient instructions): Urticaria (ED) Additional Instructions: Please use medication as discussed. Please follow up with family doctor if symptoms have not improved over the next two days. Please return to the emergency room if your symptoms increase or worsen or for any other concerns. Continue to alternate between Benadryl. Take the steroids as prescribed. Prescriptions: diphenhydrAMINE [Benadryl] 25 mg PO QID PRN #20 capsule PRN Reason: Itching Famotidine [Pepcid] 20 mg PO BID #10 tablet predniSONE 10 mg PO DAILY #15 tab Is patient prescribed a controlled substance at d/c from ED?: No Referrals: None,Stated [Primary Care Provider] - 1-2 days Kel Romero DO [Doctor of Osteopathic Medicine] - 1-2 days Time of Disposition: 15:15
[2019-05-29 15:55] LABS: Appearance,Urine Cloudy (Clear); Bilirubin,Urine Negative (Negative); Blood,Urine Negative (Negative); Color,Urine Yellow; Glucose,Urine (UA) Negative (Negative); Ketones,Urine Negative (Negative); Leukocyte Esterase,Urine Trace (Negative); Mucus,Urine Rare /hpf; Nitrite,Urine Negative (Negative); Protein,Urine Trace (Negative); RBC,Urine 1 /hpf (0-5); Specific Gravity,Urine 1.021 (1.001-1.035); Squamous Epithelial Cell,Urine 5 /hpf (0-4); Urobilinogen,Urine <2.0 mg/dL (<2.0); WBC,Urine 3 /hpf (0-5)
[2019-05-29 16:17] VITALS: BP 108/67; PULSE 79; TEMP 98.5
[2019-05-31 13:58] LABS: C. trachomatis,PCR Negative (Neg,Equiv); Chlamydia trachomatis Source Urine; N. gonorrhoeae,PCR Negative (Neg,Equiv); Neisseria Source Urine
== END 2019-05-29 16:16 | disposition home or self-care (01) ==
LOC: EC 14:14
DX: L50.0 Allergic urticaria (principal); F17.200 Nicotine dependence, unspecified, uncomplicated
CPT/HCPCS: 81001; 81025; 87491; 87591; 99284; 96372; J2930

== ENCOUNTER 2019-07-19 06:26 | Emergency (ER) | payer OTHER ==
[2019-07-19 07:10] LABS: Appearance,Urine Clear (Clear); Bilirubin,Urine Negative (Negative); Blood,Urine Small (Negative); Color,Urine Light Yellow; Glucose,Urine (UA) Negative (Negative); Ketones,Urine Negative (Negative); Leukocyte Esterase,Urine Negative (Negative); Mucus,Urine Rare /hpf; Nitrite,Urine Negative (Negative); Protein,Urine Negative (Negative); RBC,Urine 1 /hpf (0-5); Specific Gravity,Urine 1.005 (1.001-1.035); Squamous Epithelial Cell,Urine 1 /hpf (0-4); Urobilinogen,Urine <2.0 mg/dL (<2.0)
--- NOTE | 2019-07-19 07:13 | ED ---
General Adult HPI - General Chief complaint: Urogenital Stated complaint: female Source: patient, RN notes reviewed Mode of arrival: ambulatory Limitations: no limitations - History of Present Illness Initial comments: 23-year-old female presents to the emergency department for a chief complaint of possible herpes versus hemorrhoid. Patient states that she noticed a bump on her anus a few days ago. States it is painful and she thinks it is a hemorrhoid. However patient learned that her boyfriend cheated on her and the person he cheated with had genital herpes. Patient states that she would like to make sure this is not herpes. Denies fevers or chills. Denies vaginal discharge. Denies pelvic pain.Patient has no other complaints at this time including shortness of breath, chest pain, abdominal pain, nausea or vomiting, headache, or visual changes. - Related Data Previous Rx's Medication Instructions Recorded predniSONE 50 mg PO DAILY #3 tab 05/27/19 Famotidine [Pepcid] 20 mg PO BID #10 tablet 05/29/19 diphenhydrAMINE [Benadryl] 25 mg PO QID PRN #20 capsule 05/29/19 predniSONE 10 mg PO DAILY #15 tab 05/29/19 Allergies Allergy/AdvReac Type Severity Reaction Status Date / Time No Known Allergies Allergy Verified 07/19/19 06:35 Review of Systems ROS Statement: Those systems with pertinent positive or pertinent negative responses have been documented in the HPI. ROS Other: All systems not noted in ROS Statement are negative. Past Medical History Past Medical History: Syncope Additional Past Medical History / Comment(s): back pain History of Any Multi-Drug Resistant Organisms: None Reported Past Surgical History: Appendectomy Additional Past Surgical History / Comment(s): bilat bottom wisdom teeth extraction Past Anesthesia/Blood Transfusion Reactions: No Reported Reaction Past Psychological History: Anxiety, Bipolar, Depression, PTSD Smoking Status: Current every day smoker Past Alcohol Use History: Occasional Past Drug Use History: Marijuana - Past Family History Mother Family Medical History: No Reported History General Exam Limitations: no limitations General appearance: alert, in no apparent distress Head exam: Present: atraumatic, normocephalic, normal inspection Eye exam: Present: normal appearance, PERRL, EOMI. Absent: scleral icterus, conjunctival injection ENT exam: Present: normal exam, mucous membranes moist Neck exam: Present: normal inspection, full ROM. Absent: tenderness, meningismus, lymphadenopathy Respiratory exam: Present: normal lung sounds bilaterally. Absent: respiratory distress, wheezes, rales, rhonchi, stridor Cardiovascular Exam: Present: regular rate, normal rhythm, normal heart sounds. Absent: systolic murmur, diastolic murmur, rubs, gallop, clicks Rectal exam: Present: hemorrhoids (small non-thrombosed hemorrhoid noted) External exam: Present: normal external exam. Absent: erythema, swelling, lesions, lacerations, ecchymosis, other (Tamar gil RN present for exam) Course Vital Signs 07/19/19 06:33 Temperature 98.2 F Pulse Rate 77 Respiratory 20 Rate Blood Pressure 119/80 O2 Sat by Pulse 99 Oximetry Medical Decision Making - Medical Decision Making Physical exam reveals hemorrhoid noted. This is nonthrombosed at this time. There are no signs of genital herpes on the vulva or around the anus. Urinalysis is unremarkable. Gonorrhea and chlamydia are negative. Trichomonas is negative. Patient will follow up on gonorrhea and chlamydia results. Patient does not want empiric treatment as she just had empiric treatment 2 months ago "just in case." She prefers to follow up on culture results before receiving treatment. Patient is aware she can return to the emergency department at any time for any worsening symptoms. - Lab Data Lab Results 07/19/19 07/19/19 07/19/19 Range/Units 06:44 06:44 06:54 Urine Color Light Yellow Urine Appearance Clear (Clear) Urine pH 6.0 (5.0-8.0) Ur Specific [place] 1.005 (1.001-1.035) Urine Protein Negative (Negative) Urine Glucose (UA) Negative (Negative) Urine Ketones Negative (Negative) Urine Blood Small H (Negative) Urine Nitrite Negative (Negative) Urine Bilirubin Negative (Negative) Urine Urobilinogen <2.0 (<2.0) mg/dL Ur Leukocyte Esterase Negative (Negative) Urine RBC 1 (0-5) /hpf Urine WBC 1 (0-5) /hpf Ur Squamous Epith Cells 1 (0-4) /hpf Urine Mucus Rare H (None) /hpf Urine HCG, Qual Not Detected (Not Detectd) Trichomonas Ag (Rapid) Negative (Negative) Disposition Clinical Impression: Hemorrhoid Disposition: HOME SELF-CARE Condition: Good Instructions (If sedation given, give patient instructions): Hemorrhoids (ED) Additional Instructions: You may apply [id number] hemorrhoid cream for comfort. Please follow up with general surgeon Dr. Connor for hemorrhoid. Follow up on culture results in the next 2-3 days. If you have any worsening symptoms return to the emergency department. Is patient prescribed a controlled substance at d/c from ED?: No Referrals: Aria Bedolla MD [REFERRING] - 1-2 days Mynor Connor MD [STAFF PHYSICIAN] - 1-2 days Time of Disposition: 07:35
[2019-07-19 07:53] VITALS: BP 98/53; PULSE 67; RESP 16; TEMP 98.1
[2019-07-20 16:24] LABS: C. trachomatis,PCR Negative (Neg,Equiv); Chlamydia trachomatis Source Urine; N. gonorrhoeae,PCR Negative (Neg,Equiv); Neisseria Source Urine
== END 2019-07-19 07:52 | disposition home or self-care (01) ==
LOC: EC 06:26
DX: K64.9 Unspecified hemorrhoids (principal); F17.200 Nicotine dependence, unspecified, uncomplicated
CPT/HCPCS: 81001; 81025; 87491; 87591; 87808; 99283

== ENCOUNTER 2019-08-30 07:09 | Day surgery (SDC) | payer OTHER ==
[2019-08-03 12:30] VITALS: BMI 23.6
[~2019-08-30 07:09] MED LIST: DEXAMETHASONE SOD PHOSPHATE 10 MG/ML 1 ML VIAL IV ONE; HEPARIN SODIUM,PORCINE 5,000 UNIT/ML 1 ML VIAL SQ ONE; HYDROmorphone 0.5 MG/0.5 ML SYRINGE IVP PRN; LACTATED RINGERS 1,000 ML IV SCH; LIDOCAINE 1% 20 ML VIAL (10MG/ML) FOR IV START INTRADERMA PRN; MIDAZOLAM 2 MG/2 ML VIAL IV PRN; ONDANSETRON 4 MG/2 ML VIAL IVP ONE; Pre Op ABX Message 1 EACH MISC MISCELLANE ONE; SCOPOLAMINE 1.5MG/72HR PATCH TRANSDERM ONE
[2019-08-30 07:43] VITALS: TEMP 97.8
[2019-08-30] MEDS ORDERED: NA PHOS,M-B/NA PHOS,DI-BA 133 ML ENEMA RECTAL ONE (08:02)
--- NOTE | 2019-08-30 09:22 | P.GSHP ---
History of Present Illness H&P Date: 08/30/19 Chief Complaint: Internal/external hemorrhoids This a 19-year-old female presents today for hemorrhagic. She's had issues with internal and external hemorrhoids. Past Medical History Past Medical History: Syncope Additional Past Medical History / Comment(s): STATES RUPTURED DISC NECK AND LOWER BACK WITH PAIN, CHRONIC CONSTIPATION, HEMORRHOID PAIN. History of Any Multi-Drug Resistant Organisms: None Reported Past Surgical History: Appendectomy Additional Past Surgical History / Comment(s): WISDOM TEETH Past Anesthesia/Blood Transfusion Reactions: Previous Problems w/ Anesthesia, Motion Sickness, Postoperative Nausea & Vomiting (PONV) Smoking Status: Current every day smoker - Past Family History Mother Family Medical History: No Reported History Medications and Allergies Home Medications Medication Instructions Recorded Confirmed Type No Known Home Medications 08/26/19 08/30/19 History Allergies Allergy/AdvReac Type Severity Reaction Status Date / Time No Known Allergies Allergy Verified 08/30/19 07:31 Surgical - Exam Vital Signs Temp Pulse Resp BP Pulse Ox 97.8 F 65 18 111/58 99 08/30/19 07:41 08/30/19 07:41 08/30/19 07:41 08/30/19 07:41 08/30/19 07:41 - General well developed, well nourished, no distress - Eyes PERRL - ENT normal pinna - Neck no masses - Respiratory normal expansion - Cardiovascular Rhythm: regular - Abdomen Abdomen: soft, non tender Assessment and Plan Assessment: I internal hemorrhoids. We'll perform hemorrhoidectomy.
[2019-08-30] MEDS ORDERED: fentaNYL (PF) 50 MCG/ML 2 ML AMP ONE (09:42)
[2019-08-30] MEDS ORDERED: diphenhydrAMINE 50 MG/ML 1 ML VIAL ONE (09:42)
[2019-08-30] MEDS ORDERED: MIDAZOLAM 2 MG/2 ML VIAL ONE (09:42)
[2019-08-30] MEDS ORDERED: LIDOCAINE 1% INJ 10MG/ML (20 ML MDV) ONE (09:42)
[2019-08-30] MEDS ORDERED: PROPOFOL 10 MG/ML 20 ML VIAL IV ONE (09:42)
[2019-08-30] MEDS ORDERED: KETAMINE 10 MG/ML 20 ML VIAL ONE (09:42)
[2019-08-30] MEDS ORDERED: BUPIVACAIN-EPI 0.5%-1:200,000 30 ML VIAL SQ ONE (10:14)
[2019-08-30] MEDS ORDERED: LACTATED RINGERS 1,000 ML IV ONE (10:25)
--- NOTE | 2019-08-30 10:37 | P.OP ---
Date of Procedure: 08/30/19 Preoperative Diagnosis: Internal and external hemorrhoids Postoperative Diagnosis: Internal and external hemorrhoids Procedure(s) Performed: Internal and external Hemorrhoidectomy Anesthesia: MAC Surgeon: Mynor Connor Estimated Blood Loss (ml): 5 Pathology: other (Internal and external hemorrhoids) Condition: stable Disposition: PACU Description of Procedure: The patient's placed on the operative table in the supine position. She received IV sedation. She was then placed the prone position. Her anus was then prepped and draped usual fashion. The patient had large internal and external hemorrhoids. The anal trochars placed and anus. The left lateral hemorrhoidal column was grasped with a Allis clamp and then using the Harmonic scissors the hemorrhoid was performed. Next the right anterior and right posterior hemorrhoid columns were removed in identical fashion. The anus was then packed with Surgicel. There is no bleeding seen. The patient was then sent to recovery room in stable condition.
[2019-08-30 12:36] VITALS: RESP 18
[2019-08-30 13:53] VITALS: BP 99/62; PULSE 68
== END 2019-08-30 13:56 | disposition home or self-care (01) ==
LOC: OR 07:09
PROVIDERS: ATTEND Surgery
DX: K64.8 Other hemorrhoids (principal); K64.4 Residual hemorrhoidal skin tags; F17.200 Nicotine dependence, unspecified, uncomplicated; F41.9 Anxiety disorder, unspecified; F43.10 Post-traumatic stress disorder, unspecified; F31.9 Bipolar disorder, unspecified; M54.9 Dorsalgia, unspecified; R55 Syncope and collapse; Z98.890 Other specified postprocedural states; Z90.49 Acquired absence of other specified parts of digestive tract
CPT/HCPCS: 81025; 88304; 46260; J2250; J1200; J1644; J1100; J0690; J2405; J2001; J3010; J2704

== ENCOUNTER 2019-09-03 01:48 | Emergency (ER) | payer OTHER ==
[2019-09-03 01:58] VITALS: TEMP 99.3
[2019-09-03] MEDS ORDERED: KETOROLAC 30 MG/ML 1 ML VIAL IVP STA (02:10)
[2019-09-03] MEDS ORDERED: ONDANSETRON 4 MG/2 ML VIAL IVP STA (02:10)
[2019-09-03] MEDS ORDERED: SODIUM CHLORIDE 0.9% 1,000 ML IV ONE (02:10)
[2019-09-03 02:38] LABS: Basophils % (A) 1 %; Eosinophils # (A) 0.3 k/uL (0-0.7); Eosinophils % (A) 4 %; HGB 13.3 gm/dL (11.4-16.0); Lymphocytes % (A) 14 %; MCH 30.5 pg (25.0-35.0); MCHC 33.2 g/dL (31.0-37.0); Mean Platelet Volume 7.5; Monocytes # (A) 0.4 k/uL (0-1.0); Monocytes % (A) 5 %; Neutrophils # (A) 5.5 k/uL (1.3-7.7); Neutrophils % (A) 75 %; Platelet Count 327 k/uL (150-450); RBC 4.34 m/uL (3.80-5.40); RDW 12.1 % (11.5-15.5); WBC 7.3 k/uL (3.8-10.6)
[2019-09-03 02:46] LABS: ALT 12 U/L (4-34); AST 18 U/L (14-36); African American GFR (CKD) >90 (>60 ml/min/1.73 sqM); Albumin 4.3 g/dL (3.5-5.0); Alkaline Phosphatase 40 U/L (38-126); Anion Gap 8 mmol/L; Blood Urea Nitrogen 13 mg/dL (7-17); Calcium 9.4 mg/dL (8.4-10.2); Carbon Dioxide 26 mmol/L (22-30); Chloride 106 mmol/L (98-107); Glucose 97 mg/dL (74-99); Non-African American GFR(CKD) >90 (>60 ml/min/1.73 sqM); Potassium 3.7 mmol/L (3.5-5.1); Sodium 140 mmol/L (137-145); Total Bilirubin 0.5 mg/dL (0.2-1.3); Total Protein 7.1 g/dL (6.3-8.2)
[2019-09-03 02:53] LABS: INR 0.9 (<1.2); Partial Thromboplastin Time 23.8 sec (22.0-30.0); Prothrombin Time 9.9 sec (9.0-12.0)
[2019-09-03] MEDS ORDERED: ACET/COD 300 MG/30 MG STARTER PACK 6 TAB BTL PO STA (03:07)
--- NOTE | 2019-09-03 03:07 | ED ---
Dizziness HPI - General Chief Complaint: Dizziness Stated Complaint: Post op complications Time Seen by Provider: 09/03/19 02:03 Source: patient Mode of arrival: ambulatory Limitations: no limitations - History of Present Illness Initial Comments: 23-year-old female patient presents to the emergency department today for evaluation of bleeding from a surgical site. Patient states she had a hemorrhoidectomy on Thursday. States that with bowel movements she is still having episodes of bleeding. States she is having discomfort to the area. States she is not becoming dizzy and feeling nauseated. She is unsure she is losing too much blood. Denies taking any medication for symptoms. Denies any syncope. Patient denies any recent rash, fever, chills, shortness breath, chest pain, back pain, numbness, tingling, dizziness, weakness, hematuria, dysuria, urinary urgency, urinary frequency, headache, visual changes, or any other complaints. - Related Data Previous Rx's Medication Instructions Recorded Docusate [Colace] 100 mg PO BID #20 capsule 08/30/19 HYDROcodone/APAP 5-325MG [[place] 1 tab PO Q6HR PRN #10 tab 08/30/19 5-325] Allergies Allergy/AdvReac Type Severity Reaction Status Date / Time No Known Allergies Allergy Verified 09/03/19 01:58 Review of Systems ROS Statement: Those systems with pertinent positive or pertinent negative responses have been documented in the HPI. ROS Other: All systems not noted in ROS Statement are negative. Past Medical History Past Medical History: Syncope Additional Past Medical History / Comment(s): STATES RUPTURED DISC NECK AND LOWER BACK WITH PAIN, CHRONIC CONSTIPATION, HEMORRHOID PAIN. History of Any Multi-Drug Resistant Organisms: None Reported Past Surgical History: Appendectomy Additional Past Surgical History / Comment(s): WISDOM TEETH Past Anesthesia/Blood Transfusion Reactions: Previous Problems w/ Anesthesia, Motion Sickness, Postoperative Nausea & Vomiting (PONV) Past Psychological History: Anxiety, Bipolar, Depression, PTSD Smoking Status: Current every day smoker Past Alcohol Use History: None Reported Past Drug Use History: Marijuana - Past Family History Mother Family Medical History: No Reported History General Exam Limitations: no limitations General appearance: alert, in no apparent distress, other (This is a well- developed, well-nourished adult female patient in no acute distress. Vital signs upon presentation are temperature 99.3F, pulse 88, respirations 20, blood pressure 108/70, pulse ox 98% on room air.) Eye exam: Present: normal appearance, PERRL, EOMI. Absent: scleral icterus, conjunctival injection, periorbital swelling ENT exam: Present: normal exam, normal oropharynx, mucous membranes moist Respiratory exam: Present: normal lung sounds bilaterally. Absent: respiratory distress, wheezes, rales, rhonchi, stridor Cardiovascular Exam: Present: regular rate, normal rhythm, normal heart sounds. Absent: systolic murmur, diastolic murmur, rubs, gallop, clicks GI/Abdominal exam: Present: soft, normal bowel sounds. Absent: distended, tenderness, guarding, rebound, rigid Rectal exam: Present: hemorrhoids, other (No active bleeding noted) Neurological exam: Present: alert, oriented X3, CN II-XII intact Psychiatric exam: Present: normal affect, normal mood Skin exam: Present: warm, dry, intact, normal color. Absent: rash Course Vital Signs 09/03/19 01:55 Temperature 99.3 F Pulse Rate 88 Respiratory 20 Rate Blood Pressure 108/70 O2 Sat by Pulse 98 Oximetry Medical Decision Making - Medical Decision Making 23-year-old female patient presented to the emergency department today for evaluation of bleeding from her recent hemorrhoid surgical site. Physical examination revealed no active bleeding. Abdomen is soft and nontender. Labs reviewed and are unremarkable. I did discuss findings and results with the patient's patient was sent home with a starter pack for Tylenol codeine. She is instructed to follow-up with her surgeon for further evaluation as soon as possible. Return parameters were discussed in detail. She verbalizes understanding and agrees with this plan. - Lab Data Result diagrams: 09/03/19 02:23 09/03/19 02:23 Lab Results 09/03/19 09/03/19 09/03/19 Range/Units 02:23 02:23 02:23 WBC 7.3 (3.8-10.6) k/uL RBC 4.34 (3.80-5.40) m/uL Hgb 13.3 (11.4-16.0) gm/dL Hct 40.0 (34.0-46.0) % MCV 92.0 (80.0-100.0) fL MCH 30.5 (25.0-35.0) pg MCHC 33.2 (31.0-37.0) g/dL RDW 12.1 (11.5-15.5) % Plt Count 327 (150-450) k/uL Neutrophils % 75 % Lymphocytes % 14 % Monocytes % 5 % Eosinophils % 4 % Basophils % 1 % Neutrophils # 5.5 (1.3-7.7) k/uL Lymphocytes # 1.0 (1.0-4.8) k/uL Monocytes # 0.4 (0-1.0) k/uL Eosinophils # 0.3 (0-0.7) k/uL Basophils # 0.0 (0-0.2) k/uL PT 9.9 (9.0-12.0) sec INR 0.9 (<1.2) APTT 23.8 (22.0-30.0) sec Sodium 140 (137-145) mmol/L Potassium 3.7 (3.5-5.1) mmol/L Chloride 106 (98-107) mmol/L Carbon Dioxide 26 (22-30) mmol/L Anion Gap 8 mmol/L BUN 13 (7-17) mg/dL Creatinine 0.66 (0.52-1.04) mg/dL Est GFR (CKD-EPI)AfAm >90 (>60 ml/min/1.73 sqM) Est GFR (CKD-EPI)NonAf >90 (>60 ml/min/1.73 sqM) Glucose 97 (74-99) mg/dL Calcium 9.4 (8.4-10.2) mg/dL Total Bilirubin 0.5 (0.2-1.3) mg/dL AST 18 (14-36) U/L ALT 12 (4-34) U/L Alkaline Phosphatase 40 (38-126) U/L Total Protein 7.1 (6.3-8.2) g/dL Albumin 4.3 (3.5-5.0) g/dL Lipase 58 (23-300) U/L Disposition Clinical Impression: Dizziness, Post-op bleeding Disposition: HOME SELF-CARE Condition: Good Instructions (If sedation given, give patient instructions): Dizziness (ED), Hemorrhoidectomy (DC) Additional Instructions: Continue take medications as directed. Follow-up with your surgeon for recheck as soon as possible. Return to the emergency department immediately for any new, worsening, or concerning symptoms. Is patient prescribed a controlled substance at d/c from ED?: No Referrals: Marima Edward DO [Primary Care Provider] - 1-2 days Time of Disposition: 03:07
[2019-09-03 03:26] VITALS: BP 94/56; PULSE 70; RESP 16
== END 2019-09-03 03:28 | disposition home or self-care (01) ==
LOC: EC 01:48
DX: K91.840 Postprocedural hemorrhage of a digestive system organ or structure following a digestive system procedure (principal); R42 Dizziness and giddiness; F17.200 Nicotine dependence, unspecified, uncomplicated
CPT/HCPCS: 99284; 96374; 96375; 36415; 80053; 83690; 85025; 85610; 85730; 96361; J2405; J1885

== ENCOUNTER 2021-06-02 12:19 | Emergency (ER) | payer OTHER ==
[2021-06-02 12:49] VITALS: BP 107/65; PULSE 90; RESP 18; TEMP 97.9
--- NOTE | 2021-06-02 13:12 | ED ---
General Adult HPI - General Chief complaint: Dental/Oral Stated complaint: dental pain Time Seen by Provider: 06/02/21 12:57 Source: patient, RN notes reviewed, old records reviewed Mode of arrival: ambulatory Limitations: no limitations - History of Present Illness Initial comments: 25-year-old female with toothache status post extraction. This occurred about 5 days ago with the patient's dentist. She's had some pain at the site of extraction. No fever chills. Patient is able to eat and drink with some sensitivity to the area. No difficulty breathing. - Related Data Previous Rx's Medication Instructions Recorded Docusate [Colace] 100 mg PO BID #20 capsule 08/30/19 HYDROcodone/APAP 5-325MG [[place] 1 tab PO Q6HR PRN #10 tab 08/30/19 5-325] Amoxicillin 500 mg PO Q12HR 10 Days #20 cap 06/02/21 Allergies Allergy/AdvReac Type Severity Reaction Status Date / Time No Known Allergies Allergy Verified 06/02/21 12:49 Review of Systems ROS Statement: Those systems with pertinent positive or pertinent negative responses have been documented in the HPI. ROS Other: All systems not noted in ROS Statement are negative. Past Medical History Past Medical History: Syncope Additional Past Medical History / Comment(s): STATES RUPTURED DISC NECK AND LOWER BACK WITH PAIN, CHRONIC CONSTIPATION, HEMORRHOID PAIN. History of Any Multi-Drug Resistant Organisms: None Reported Past Surgical History: Appendectomy Additional Past Surgical History / Comment(s): WISDOM TEETH Past Anesthesia/Blood Transfusion Reactions: Previous Problems w/ Anesthesia, Motion Sickness, Postoperative Nausea & Vomiting (PONV) Past Psychological History: Anxiety, Bipolar, Depression, PTSD Smoking Status: Former smoker Past Alcohol Use History: None Reported Past Drug Use History: Marijuana - Past Family History Mother Family Medical History: No Reported History General Exam Limitations: no limitations General appearance: alert, in no apparent distress Eye exam: Present: normal appearance, PERRL ENT exam: Present: other (6 status post extraction of a right upper molar no active bleeding) Course Vital Signs 06/02/21 12:46 Temperature 97.9 F Pulse Rate 90 Respiratory 18 Rate Blood Pressure 107/65 O2 Sat by Pulse 98 Oximetry Medical Decision Making - Medical Decision Making Socket appears well healed. Patient will be placed on prophylactic antibiotics she will continue Tylenol Motrin. She will follow with her dentist as soon as possible. Disposition Clinical Impression: History of tooth extraction, Dry tooth socket Disposition: HOME SELF-CARE Instructions (If sedation given, give patient instructions): Toothache (ED), Dry Socket (ED) Additional Instructions: Please follow up with her dentist as soon as possible. Please take antibiotics as prescribed. Please take Tylenol and Motrin for pain. Prescriptions: Amoxicillin 500 mg PO Q12HR 10 Days #20 cap Is patient prescribed a controlled substance at d/c from ED?: No Referrals: None,Stated [Primary Care Provider] - 1-2 days Aria Bedolla MD [REFERRING] - 1-2 days Thai Adamson MD [STAFF PHYSICIAN] - 1-2 days Time of Disposition: 13:10
== END 2021-06-02 13:30 | disposition home or self-care (01) ==
LOC: EC 12:19
DX: M27.3 Alveolitis of jaws (principal); Z98.818 Other dental procedure status; F12.90 Cannabis use, unspecified, uncomplicated; Z87.891 Personal history of nicotine dependence
CPT/HCPCS: 99282

== ENCOUNTER 2021-09-08 19:11 | Emergency (ER) | payer OTHER ==
[2021-09-08 19:23] VITALS: BP 107/62; PULSE 107; RESP 16; TEMP 98.2
[2021-09-08] MEDS ORDERED: FLUCONAZOLE 150 MG TAB PO STA (20:38)
--- NOTE | 2021-09-08 20:38 | ED ---
General Adult HPI - General Chief complaint: Recheck/Abnormal Lab/Rx Stated complaint: breast feeding issues Time Seen by Provider: 09/08/21 19:34 Source: patient Mode of arrival: ambulatory Limitations: no limitations - History of Present Illness Initial comments: 26-year-old female presents to the emergency department for evaluation of bilateral nipple pain and cracking. Patient states she is breast-feeding her 4-month-old and is concerned that the has thrush; reports concern that the yeast has become an irritant soreness in her nipples. Reports ongoing regular nursing pattern despite discomfort. States she has attempted to use the nipple Caal for comfort, however reports again interferes with the 's ability to latch therefore discontinued use. Patient denies fever, chills, engorgement, change in appearance of milk, bleeding from the nipples, or unusual nipple discharge. - Related Data Previous Rx's Medication Instructions Recorded Docusate [Colace] 100 mg PO BID #20 capsule 08/30/19 HYDROcodone/APAP 5-325MG [[place] 1 tab PO Q6HR PRN #10 tab 08/30/19 5-325] Amoxicillin 500 mg PO Q12HR 10 Days #20 cap 06/02/21 Fluconazole [Diflucan] 150 mg PO DAILY 1 Days #1 tab 09/08/21 Allergies Allergy/AdvReac Type Severity Reaction Status Date / Time No Known Allergies Allergy Verified 09/08/21 19:19 Review of Systems ROS Statement: Those systems with pertinent positive or pertinent negative responses have been documented in the HPI. ROS Other: All systems not noted in ROS Statement are negative. Past Medical History Past Medical History: Syncope Additional Past Medical History / Comment(s): STATES RUPTURED DISC NECK AND LOWER BACK WITH PAIN, CHRONIC CONSTIPATION, HEMORRHOID PAIN. History of Any Multi-Drug Resistant Organisms: None Reported Past Surgical History: Appendectomy Additional Past Surgical History / Comment(s): WISDOM TEETH Past Anesthesia/Blood Transfusion Reactions: Previous Problems w/ Anesthesia, Motion Sickness, Postoperative Nausea & Vomiting (PONV) Past Psychological History: Anxiety, Bipolar, Depression, PTSD Smoking Status: Former smoker Past Alcohol Use History: None Reported Past Drug Use History: Marijuana - Past Family History Mother Family Medical History: No Reported History General Exam Limitations: no limitations (Well-developed, well-nourished female in no acute distress. Initial temperature 98.2, pulse 107, recheck 88, respirations 16, blood pressure 107/62, pulse ox 98% on room air) General appearance: alert, in no apparent distress Respiratory exam: Present: normal lung sounds bilaterally. Absent: respiratory distress, wheezes, rales, rhonchi, stridor Cardiovascular Exam: Present: regular rate, normal rhythm, normal heart sounds. Absent: systolic murmur, diastolic murmur, rubs, gallop, clicks GI/Abdominal exam: Present: soft, normal bowel sounds. Absent: distended, tenderness, guarding, rebound, rigid Psychiatric exam: Present: normal affect, normal mood Skin exam: Present: warm, dry, normal color, other (Small superficial fissures noted to bilateral nipples; no drainage or surrounding erythema.). 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 Upon exam, patient is well appearing and in no acute distress. She does have evidence of superficial fissures on bilateral nipples, however there is no drainage or surrounding erythema. Does report pain increases when infant latches and infant does have evidence of oral thrush. This patient's care was discussed with my attending, Dr. Friedman, who talked with SCREENPLAY WRITER for recommendations. Patient was given a dose of Diflucan will be prescribed a repeat dose and instructed to take it in 72 hours. Topical treatment and instructions were reviewed at length with patient and included in detail in her discharge instructions. Return parameters were discussed. Patient verbalizes understanding and agrees with this plan. Disposition Clinical Impression: [place] infection, Fissured nipple, female Disposition: HOME SELF-CARE Condition: Stable Instructions (If sedation given, give patient instructions): and Nipple Soreness (ED), Skin Yeast Infection (ED) Additional Instructions: Take second dose of Diflucan in 72 hours (Thursday, 09/11). It is important to apply topical treatment to both nipples after your daughter nurses. Prior to her latching, wipe nipples with clean cloth. Topical treatment= OTC vaginal yeast treatment + coconut oil; apply to nipples Continue treatment for 14 days. Follow up with your OB[facility] to schedule a recheck in the morning. Return to the emergency department with any new, worsening, or concerning symptoms. Prescriptions: Fluconazole [Diflucan] 150 mg PO DAILY 1 Days #1 tab Is patient prescribed a controlled substance at d/c from ED?: No Referrals: None,Stated [Primary Care Provider] - 1-2 days Jailene Ndiaye DO [Doctor of Osteopathic Medicine] - 1-2 days Time of Disposition: 20:43
== END 2021-09-08 21:27 | disposition home or self-care (01) ==
LOC: EC 19:11
DX: N64.0 Fissure and fistula of nipple (principal); B37.9 Candidiasis, unspecified; F41.9 Anxiety disorder, unspecified; F31.9 Bipolar disorder, unspecified; F43.10 Post-traumatic stress disorder, unspecified; F12.90 Cannabis use, unspecified, uncomplicated; Z87.891 Personal history of nicotine dependence
CPT/HCPCS: 99283

== ENCOUNTER 2021-10-16 04:21 | Emergency (ER) | payer OTHER ==
--- NOTE | 2021-10-16 06:10 | ED ---
Female Urogenital HPI - General Chief complaint: Vaginal Bleeding Stated complaint: Vaginal Bleeding Time Seen by Provider: 10/16/21 05:10 Source: patient Mode of arrival: ambulatory Limitations: no limitations - History of Present Illness MD Complaint: vaginal bleeding -: hour(s) Location: suprapubic Severity: mild Quality: cramping Consistency: intermittent Improves with: none Worsens with: none Last Menstrual Period: 10/03/21 Patient : Yes Associated Symptoms: vaginal bleeding - Related Data : 4 Para: 3 A: 0 Previous Rx's Medication Instructions Recorded Docusate [Colace] 100 mg PO BID #20 capsule 08/30/19 HYDROcodone/APAP 5-325MG [[place] 1 tab PO Q6HR PRN #10 tab 08/30/19 5-325] Amoxicillin 500 mg PO Q12HR 10 Days #20 cap 06/02/21 Fluconazole [Diflucan] 150 mg PO DAILY 1 Days #1 tab 09/08/21 Allergies Allergy/AdvReac Type Severity Reaction Status Date / Time No Known Allergies Allergy Verified 10/16/21 04:41 Review of Systems ROS Statement: Those systems with pertinent positive or pertinent negative responses have been documented in the HPI. ROS Other: All systems not noted in ROS Statement are negative. Constitutional: Denies: fever, chills Respiratory: Denies: cough, dyspnea Cardiovascular: Denies: chest pain, palpitations, edema Gastrointestinal: Denies: abdominal pain, nausea, vomiting, diarrhea Genitourinary: Reports: discharge. Denies: dysuria, frequency, hematuria, abnormal menses Musculoskeletal: Denies: back pain Skin: Denies: rash Neurological: Denies: headache Hematological/Lymphatic: Denies: easy bleeding Past Medical History Past Medical History: Syncope Additional Past Medical History / Comment(s): STATES RUPTURED DISC NECK AND LOWER BACK WITH PAIN, CHRONIC CONSTIPATION, HEMORRHOID PAIN. History of Any Multi-Drug Resistant Organisms: None Reported Past Surgical History: Appendectomy Additional Past Surgical History / Comment(s): WISDOM TEETH Past Anesthesia/Blood Transfusion Reactions: Previous Problems w/ Anesthesia, Motion Sickness, Postoperative Nausea & Vomiting (PONV) Past Psychological History: Anxiety, Bipolar, Depression, PTSD Smoking Status: Current every day smoker Past Alcohol Use History: None Reported Past Drug Use History: Marijuana - Past Family History Mother Family Medical History: No Reported History General Exam Limitations: no limitations General appearance: alert, in no apparent distress Head exam: Present: atraumatic Eye exam: Present: normal appearance Respiratory exam: Present: normal lung sounds bilaterally. Absent: respiratory distress, wheezes, rales, rhonchi, stridor Cardiovascular Exam: Present: regular rate, normal rhythm, normal heart sounds. Absent: systolic murmur, diastolic murmur, rubs, gallop GI/Abdominal exam: Present: soft. Absent: distended, tenderness, guarding, rebound, rigid, mass External exam: Present: normal external exam Speculum exam: Present: normal speculum exam, vaginal bleeding (Trace of dark blood). Absent: erythema, vaginal discharge, cervical discharge, foreign body, tissue, laceration By manual exam: Present: normal by manual exam Extremities exam: Present: normal inspection, normal capillary refill. Absent: pedal edema Back exam: Present: normal inspection Neurological exam: Present: alert Skin exam: Present: warm, dry, intact, normal color. Absent: rash Course Vital Signs 10/16/21 04:39 Temperature 98.9 F Pulse Rate 92 Respiratory 18 Rate Blood Pressure 107/76 O2 Sat by Pulse 97 Oximetry Medical Decision Making - Medical Decision Making Patient is a 26-year-old woman, , who had positive test 3 days ago. She is having intermittent mild cramping, no pain now and having some small amount of vaginal bleeding. Discussed the results with her and she will have hCG rechecked in 48 hours. She will return here if there is any problem with the follow-up. We discussed other return parameters. Patient states she has O+ blood and does not need to have Rhogam. - Lab Data Lab Results 10/16/21 Range/Units 05:16 HCG, Quant 4.5 mIU/mL Disposition Clinical Impression: Threatened Disposition: HOME SELF-CARE Condition: Good Instructions (If sedation given, give patient instructions): Threatened Miscarriage (ED) Is patient prescribed a controlled substance at d/c from ED?: No Referrals: None,Stated [Primary Care Provider] - 1-2 days
[2021-10-16 06:54] VITALS: BP 99/64; PULSE 66; RESP 19; TEMP 97.5
== END 2021-10-16 06:52 | disposition home or self-care (01) ==
LOC: EC 04:21
DX: O20.0 Threatened abortion (principal); O99.330 Smoking (tobacco) complicating pregnancy, unspecified trimester; F17.200 Nicotine dependence, unspecified, uncomplicated; O99.320 Drug use complicating pregnancy, unspecified trimester; F12.90 Cannabis use, unspecified, uncomplicated; Z3A.00 Weeks of gestation of pregnancy not specified
CPT/HCPCS: 36415; 84702; 99284

== ENCOUNTER 2021-12-08 08:04 | Emergency (ER) | payer OTHER ==
[2021-12-08 08:11] VITALS: TEMP 97.6
[2021-12-08 10:44] VITALS: BP 107/54; PULSE 86; RESP 16
--- NOTE | 2021-12-08 10:58 | ED ---
Skin/Abscess/FB HPI - General Chief complaint: Skin/Abscess/Foreign Body Stated complaint: skin problem Time Seen by Provider: 12/08/21 09:26 Source: patient, RN notes reviewed Mode of arrival: ambulatory Limitations: no limitations - History of Present Illness Initial comments: 26-year-old female who is currently breast-feeding who presents with complaints of bilateral nipple pain and some whitish colored exudate noted. She's had this before she has had thrush infection before. Her child right now does have oral thrush. No points fevers chills nausea vomiting sweats no problems with evacuating. No other current complaints or modifying factors MD complaint: other - Related Data Previous Rx's Medication Instructions Recorded Docusate [Colace] 100 mg PO BID #20 capsule 08/30/19 HYDROcodone/APAP 5-325MG [[place] 1 tab PO Q6HR PRN #10 tab 08/30/19 5-325] Amoxicillin 500 mg PO Q12HR 10 Days #20 cap 06/02/21 Fluconazole [Diflucan] 150 mg PO DAILY 1 Days #1 tab 09/08/21 Fluconazole [Diflucan] 150 mg PO DAILY #2 tab 12/08/21 Allergies Allergy/AdvReac Type Severity Reaction Status Date / Time No Known Allergies Allergy Verified 12/08/21 08:11 Review of Systems ROS Statement: Those systems with pertinent positive or pertinent negative responses have been documented in the HPI. ROS Other: All systems not noted in ROS Statement are negative. Past Medical History Past Medical History: Syncope Additional Past Medical History / Comment(s): STATES RUPTURED DISC NECK AND LOWER BACK WITH PAIN, CHRONIC CONSTIPATION, HEMORRHOID PAIN. History of Any Multi-Drug Resistant Organisms: None Reported Past Surgical History: Appendectomy Additional Past Surgical History / Comment(s): WISDOM TEETH Past Anesthesia/Blood Transfusion Reactions: Previous Problems w/ Anesthesia, Motion Sickness, Postoperative Nausea & Vomiting (PONV) Past Psychological History: Anxiety, Bipolar, Depression, PTSD Smoking Status: Current every day smoker Past Alcohol Use History: None Reported Past Drug Use History: Marijuana - Past Family History Mother Family Medical History: No Reported History General Exam - General Exam Comments Initial Comments: This is a well-developed well-nourished awake alert oriented 3 female Limitations: no limitations General appearance: alert, in no apparent distress Head exam: Present: atraumatic, normocephalic, normal inspection Respiratory exam: Present: other (Examination of the chest wall and breasts reveal some mild erythema as the patient described it. Some evidence of whitish exudate.) Neurological exam: Present: alert, oriented X3, CN II-XII intact Psychiatric exam: Present: normal affect, normal mood Skin exam: Present: warm, dry, other (As noted above) Course Vital Signs 12/08/21 12/08/21 08:06 10:41 Temperature 97.6 F 97.6 F Pulse Rate 88 86 Respiratory 18 16 Rate Blood Pressure 104/66 107/54 O2 Sat by Pulse 98 98 Oximetry Medical Decision Making - Medical Decision Making Patient will be discharged with appropriate medication she has been previously on Diflucan. Disposition Clinical Impression: Candidiasis of breast Disposition: HOME SELF-CARE Condition: Good Instructions (If sedation given, give patient instructions): Skin Yeast Infection (ED) Prescriptions: Fluconazole [Diflucan] 150 mg PO DAILY #2 tab Is patient prescribed a controlled substance at d/c from ED?: No Referrals: None,Stated [Primary Care Provider] - 1-2 days Decision Date: 12/08/21 Decision Time: 10:58
== END 2021-12-08 11:03 | disposition home or self-care (01) ==
LOC: EC 08:04
DX: B37.89 Other sites of candidiasis (principal); F41.9 Anxiety disorder, unspecified; F31.9 Bipolar disorder, unspecified; F43.10 Post-traumatic stress disorder, unspecified; F17.200 Nicotine dependence, unspecified, uncomplicated; F12.90 Cannabis use, unspecified, uncomplicated; Z90.49 Acquired absence of other specified parts of digestive tract
CPT/HCPCS: 99283

== ENCOUNTER 2022-03-08 08:36 | Emergency (ER) | payer OTHER ==
[2022-03-08 08:40] VITALS: TEMP 98.2
[2022-03-08] MEDS ORDERED: SODIUM CHLORIDE 0.9% 2,000 ML IV ONE (08:58)
--- NOTE | 2022-03-08 09:01 | ED ---
General Adult HPI - General Chief complaint: Dizziness Stated complaint: Early , Dizziness Time Seen by Provider: 03/08/22 08:45 Source: patient, RN notes reviewed Mode of arrival: ambulatory Limitations: no limitations - History of Present Illness Initial comments: 26-year-old female presents emergency Department chief complaint of nausea. Pat bhanu states she recently saw she is . Patient is A1 states that she sees Dr. Ndiaye. Patient states she has no vaginal pain or vaginal discharge no abdominal pain. She states she just been nauseated feeling lightheaded she has concern for possible dehydration no dysuria no fevers chills no chest pain or shortness of breath - Related Data Previous Rx's Medication Instructions Recorded Docusate [Colace] 100 mg PO BID #20 capsule 08/30/19 HYDROcodone/APAP 5-325MG [[place] 1 tab PO Q6HR PRN #10 tab 08/30/19 5-325] Amoxicillin 500 mg PO Q12HR 10 Days #20 cap 06/02/21 Fluconazole [Diflucan] 150 mg PO DAILY 1 Days #1 tab 09/08/21 Fluconazole [Diflucan] 150 mg PO DAILY #2 tab 12/08/21 Allergies Allergy/AdvReac Type Severity Reaction Status Date / Time No Known Allergies Allergy Verified 03/08/22 08:40 Review of Systems ROS Statement: Those systems with pertinent positive or pertinent negative responses have been documented in the HPI. ROS Other: All systems not noted in ROS Statement are negative. Past Medical History Past Medical History: Syncope Additional Past Medical History / Comment(s): STATES RUPTURED DISC NECK AND LOWER BACK WITH PAIN, CHRONIC CONSTIPATION, HEMORRHOID PAIN. History of Any Multi-Drug Resistant Organisms: None Reported Past Surgical History: Appendectomy Additional Past Surgical History / Comment(s): WISDOM TEETH Past Anesthesia/Blood Transfusion Reactions: Previous Problems w/ Anesthesia, Motion Sickness, Postoperative Nausea & Vomiting (PONV) Past Psychological History: Anxiety, Bipolar, Depression, PTSD Smoking Status: Current every day smoker Past Alcohol Use History: None Reported Past Drug Use History: Marijuana - Past Family History Mother Family Medical History: No Reported History General Exam Limitations: no limitations General appearance: alert, in no apparent distress Head exam: Present: atraumatic, normocephalic, normal inspection Eye exam: Present: normal appearance, PERRL, EOMI. Absent: scleral icterus, conjunctival injection, periorbital swelling ENT exam: Present: normal exam, normal oropharynx, mucous membranes moist Neck exam: Present: normal inspection, full ROM. Absent: tenderness, meningismus, lymphadenopathy Respiratory exam: Present: normal lung sounds bilaterally. Absent: respiratory distress, wheezes, rales, rhonchi, stridor Cardiovascular Exam: Present: regular rate, normal rhythm, normal heart sounds. Absent: systolic murmur, diastolic murmur, rubs, gallop, clicks GI/Abdominal exam: Present: soft, normal bowel sounds. Absent: distended, tenderness, guarding, rebound, rigid Neurological exam: Present: alert, oriented X3 Course Vital Signs 03/08/22 03/08/22 08:37 09:53 Temperature 98.2 F Pulse Rate 73 70 Respiratory 18 16 Rate Blood Pressure 105/70 106/62 O2 Sat by Pulse 100 100 Oximetry - Reevaluation(s) Reevaluation #1: 03/08/22 09:28 Patient was offered antiemetics evaluation patient declined states that she can deal with the nausea. Medical Decision Making - Medical Decision Making Patient's labwork reviewed, no severe findings. Patient was well hydrated does feel improved patient again denies anything for nausea. Patient has a follow-up appointment with Dr. Ndiaye return parameters were discussed. - Lab Data Result diagrams: 03/08/22 09:10 03/08/22 09:10 Lab Results 03/08/22 03/08/22 03/08/22 Range/Units 09:10 09:10 09:10 WBC 4.4 (3.8-10.6) k/uL RBC 4.32 (3.80-5.40) m/uL Hgb 13.0 (11.4-16.0) gm/dL Hct 40.2 (34.0-46.0) % MCV 93.0 (80.0-100.0) fL MCH 30.2 (25.0-35.0) pg MCHC 32.4 (31.0-37.0) g/dL RDW 12.0 (11.5-15.5) % Plt Count 256 (150-450) k/uL MPV 7.6 Neutrophils % 66 % Lymphocytes % 19 % Monocytes % 7 % Eosinophils % 7 % Basophils % 1 % Neutrophils # 2.9 (1.3-7.7) k/uL Lymphocytes # 0.8 L (1.0-4.8) k/uL Monocytes # 0.3 (0-1.0) k/uL Eosinophils # 0.3 (0-0.7) k/uL Basophils # 0.0 (0-0.2) k/uL Sodium 135 L (137-145) mmol/L Potassium 4.0 (3.5-5.1) mmol/L Chloride 106 (98-107) mmol/L Carbon Dioxide 21 L (22-30) mmol/L Anion Gap 8 mmol/L BUN 13 (7-17) mg/dL Creatinine 0.51 L (0.52-1.04) mg/dL Est GFR (CKD-EPI)AfAm >90 (>60 ml/min/1.73 sqM) Est GFR (CKD-EPI)NonAf >90 (>60 ml/min/1.73 sqM) Glucose 90 (74-99) mg/dL Calcium 8.8 (8.4-10.2) mg/dL Total Bilirubin 0.6 (0.2-1.3) mg/dL AST 21 (14-36) U/L ALT 10 (4-34) U/L Alkaline Phosphatase 44 (38-126) U/L Total Protein 6.8 (6.3-8.2) g/dL Albumin 4.1 (3.5-5.0) g/dL HCG, Quant 5184.2 mIU/mL Urine Color Yellow Urine Appearance Clear (Clear) Urine pH 6.0 (5.0-8.0) Ur Specific [place] 1.022 (1.001-1.035) Urine Protein Negative (Negative) Urine Glucose (UA) Negative (Negative) Urine Ketones Negative (Negative) Urine Blood Negative (Negative) Urine Nitrite Negative (Negative) Urine Bilirubin Negative (Negative) Urine Urobilinogen <2.0 (<2.0) mg/dL Ur Leukocyte Esterase Negative (Negative) Disposition Clinical Impression: , Nausea, Dizziness Disposition: HOME SELF-CARE Condition: Stable Instructions (If sedation given, give patient instructions): (ED) Additional Instructions: Please return to the Emergency Department if symptoms worsen or any other concerns. Is patient prescribed a controlled substance at d/c from ED?: No Referrals: None,Stated [Primary Care Provider] - 1-2 days Time of Disposition: 10:26
[2022-03-08 09:22] LABS: Appearance,Urine Clear (Clear); Bilirubin,Urine Negative (Negative); Blood,Urine Negative (Negative); Color,Urine Yellow; Glucose,Urine (UA) Negative (Negative); Ketones,Urine Negative (Negative); Leukocyte Esterase,Urine Negative (Negative); Nitrite,Urine Negative (Negative); Protein,Urine Negative (Negative); Specific Gravity,Urine 1.022 (1.001-1.035); Urobilinogen,Urine <2.0 mg/dL (<2.0)
[2022-03-08 09:40] LABS: ALT 10 U/L (4-34); AST 21 U/L (14-36); African American GFR (CKD) >90 (>60 ml/min/1.73 sqM); Albumin 4.1 g/dL (3.5-5.0); Alkaline Phosphatase 44 U/L (38-126); Anion Gap 8 mmol/L; Blood Urea Nitrogen 13 mg/dL (7-17); Calcium 8.8 mg/dL (8.4-10.2); Carbon Dioxide 21 mmol/L (22-30); Chloride 106 mmol/L (98-107); Glucose 90 mg/dL (74-99); Non-African American GFR(CKD) >90 (>60 ml/min/1.73 sqM); Sodium 135 mmol/L (137-145); Total Bilirubin 0.6 mg/dL (0.2-1.3); Total Protein 6.8 g/dL (6.3-8.2)
[2022-03-08 09:53] VITALS: BP 106/62; PULSE 70; RESP 16
[2022-03-08 09:56] LABS: HCG,Quantitative Serum 5184.2 mIU/mL
[2022-03-08 10:00] LABS: Basophils % (A) 1 %; Eosinophils # (A) 0.3 k/uL (0-0.7); Eosinophils % (A) 7 %; HCT 40.2 % (34.0-46.0); Lymphocytes # (A) 0.8 k/uL (1.0-4.8); Lymphocytes % (A) 19 %; MCH 30.2 pg (25.0-35.0); MCHC 32.4 g/dL (31.0-37.0); Mean Platelet Volume 7.6; Monocytes # (A) 0.3 k/uL (0-1.0); Monocytes % (A) 7 %; Neutrophils # (A) 2.9 k/uL (1.3-7.7); Neutrophils % (A) 66 %; Platelet Count 256 k/uL (150-450); RBC 4.32 m/uL (3.80-5.40); WBC 4.4 k/uL (3.8-10.6)
== END 2022-03-08 10:35 | disposition home or self-care (01) ==
LOC: EC 08:36
DX: O21.9 Vomiting of pregnancy, unspecified (principal); O26.819 Pregnancy related exhaustion and fatigue, unspecified trimester; R42 Dizziness and giddiness; F17.200 Nicotine dependence, unspecified, uncomplicated; Z3A.00 Weeks of gestation of pregnancy not specified
CPT/HCPCS: 36415; 80053; 81003; 84702; 85025; 96360; 99284

== ENCOUNTER → 2022-03-24 | Outpatient (CLI) | payer OTHER ==
--- NOTE | 2022-03-25 07:13 | US ---
EXAMINATION TYPE: Transabdominal DATE OF EXAM: 03/24/2022 4:25 PM COMPARISON: NONE for this . CLINICAL HISTORY: Z36.89 CONFIRM GESTATIONAL AGE AND VIABILITY. Confirm gestational age and viability . Hx 1 miscarriage. . EXAM PERFORMED: Transvaginal (TV) and Transabdominal (TA) EXAM MEASUREMENTS: GESTATIONAL AGE / DATING Physician Established: Not yet established. Dates by LMP: (8 weeks/4 days) EDC: 10/30/2022 Dates by First Scan: This is first scan here. Dates by Current Scan for: By gestational sac: (5 weeks/2 days) EDC: 11/22/2022 MATERNAL ANATOMY Uterus: 8.2 x 6.5 x 6.6 cm. Anteverted. Right Ovary: 4.3 x 2.1 x 1.9 cm. Area of mixed echogenicity seen in right ovary: 1.9 x 1.7 x 1.4 cm. Left Ovary: 2.9 x 2.4 x 1.6 cm. Appears wnl Post CDS / Adnexa: Prominent blood vessels seen bilateral adnexa. Presence of free fluid: Fluid seen in CDS. Presence of corpus luteal cyst: Area of mixed echogenicity seen in right ovary: 1.9 x 1.7 x 1.4 cm. Presence of subchorionic bleed: No GESTATION / SURVEY CRL: Possibly too early to measure, hyperechoic area seen measuring 0.19 cm. MSD: 1.17 cm ( 5 weeks/ 2 days) Yolk Sac (normal less than 6mm): 3 mm. Heart Rate: Not seen, too early. IUP: Gestational sac and yolk sac seen at this time. Too early to confirm possible pole. Date of LMP: 01/23/2022 IMPRESSION: 1. Intrauterine gestational sac without definite pole. Findings may reflect normal early IUP. C orrelate clinically with serial beta hCG and/or ultrasound.
== END | disposition home or self-care (01) ==
LOC: RADUSWWP 15:49
PROVIDERS: ATTEND Obstetrics & Gynecology
DX: Z36.89 Encounter for other specified antenatal screening (principal); Z3A.01 Less than 8 weeks gestation of pregnancy
CPT/HCPCS: 76801; 76817

== ENCOUNTER → 2022-05-06 | Outpatient (CLI) | payer OTHER | END | disposition home or self-care (01) | LOC: LABWHC1 12:54 | PROVIDERS: ATTEND Obstetrics & Gynecology | DX: O03.9 Complete or unspecified spontaneous abortion without complication (principal); Z3A.00 Weeks of gestation of pregnancy not specified | CPT/HCPCS: 36415; 84702 ==

== ENCOUNTER → 2022-05-08 | Outpatient (CLI) | payer OTHER | END | disposition home or self-care (01) | LOC: LABWHC1 11:26 | PROVIDERS: ATTEND Obstetrics & Gynecology | DX: O03.9 Complete or unspecified spontaneous abortion without complication (principal); Z3A.00 Weeks of gestation of pregnancy not specified | CPT/HCPCS: 36415; 84702 ==

== ENCOUNTER → 2022-05-23 | Outpatient (CLI) | payer OTHER ==
--- NOTE | 2022-05-23 14:32 | US ---
EXAMINATION TYPE: Transabdominal DATE OF EXAM: 05/23/2022 11:00 AM COMPARISON: NONE CLINICAL HISTORY: Z36.89 ENCOUNTER FOR OTHER SPECIFIED SCR. Confirm dates/ pt states recent miscarriage in March, unknown LMP EXAM PERFORMED: Transabdominal (TA) EXAM MEASUREMENTS: GESTATIONAL AGE / DATING Physician Established: Not yet established Dates by LMP: LMP unknown Dates by First Scan: No previous this is first scan Dates by Current Scan for: (6 weeks/1 days) EDC: 01/15/2023 MATERNAL ANATOMY Uterus: 10.6 x 5.7 x 7.8 cm Right Ovary: 3.9 x 2.2 x 2.4 cm Left Ovary: 3.9 x 2.5 x 3.3 cm Post CDS / Adnexa: wnl Presence of free fluid: No Presence of corpus luteal cyst: Left Ovary= 2.2 x 1.7 x 2.2 cm Presence of subchorionic bleed: No GESTATION / SURVEY CRL: 0.5 cm (6 weeks/1 days) MSD: wnl Yolk Sac (normal less than 6mm): 2mm Heart Rate: 122 bpm Rhythm: Normal IUP: Viable IUP Date of LMP: Unknown Beta HcG (if available): Not available at this time Single, viable IUP/ No abnormality visualized at this time IMPRESSION: 1. Single intrauterine gestation estimated at 6 weeks 1 day gestation based on crown-rump length. Car diac activity measures 122 bpm was observed during the study.
== END | disposition home or self-care (01) ==
LOC: RADUSWWP 10:45
PROVIDERS: ATTEND Obstetrics & Gynecology
DX: Z36.89 Encounter for other specified antenatal screening (principal)
CPT/HCPCS: 76801

== ENCOUNTER 2022-08-30 11:16 | Outpatient (CLI) | payer OTHER ==
[2022-08-30 12:34] VITALS: BP 108/58; PULSE 85; RESP 16; TEMP 97.7
--- NOTE | 2022-09-16 02:05 | P.MSEPDOC ---
Presenting Problems - Arrival Data Date of Arrival on Unit: 08/30/22 Time of Arrival on Unit: 11:50 Mode of Transport: Ambulatory - Complaint OB-Reason for Admission/Chief Complaint: Other Comment: pt reports increase in discharge after having intercourse in last 24 hours as well as lower abd pressure, abd soft and non tender Medical History - Information : 6 Para: 3 Term: 3 : 0 Abortions: Spontaneous or Elective: 2 Number of Living Children: 3 - Gestational Age Gestational Age by VIRIDIANA (wks/days): 20 Weeks and 2 Days Review of Systems - Review of Systems Constitutional: No problems Breast: No problems ENT: No problems Cardiovascular: No problems Respiratory: No problems Gastrointestinal: No problems Genitourinary: No problems Musculoskeletal: No problems Neurological: No problems Skin: No problems Vital Signs - Temperature Temperature: 97.7 F Temperature Source: Temporal Artery Scan - Pulse Right Brachial Pulse Rate: 85 Pulse Assessment Method: Automatic Cuff - Respirations Respiratory Rate: 16 Oxygen Delivery Method: Room Air O2 Sat by Pulse Oximetry: 98 - Blood Pressure Right Arm Blood Pressure: 108/58 Blood Pressure Mean: 74 Blood Pressure Source: Automatic Cuff Medical Screen Scoring - Assessment - Baby A Baseline FHR: 145 Physician Notification - Physician Notified Physician Notified Date: 08/30/22 Physician Notified Time: 11:45 Physician: Jailene Ndiaye New Order Received: Yes (dc home) Maternal Triage Index - Non-Urgent/Priority 4 Non-Urgent Priority 4: Yes Criteria Met for Priority 4: discussed pt's complaint with dr ndiaye, pt ok to dc home, appt previously scheduled for 09/04 Disposition - Disposition OB Disposition: Discharge to home, Written follow up instructions reviewed Discharge Date: 08/30/22 Discharge Time: 11:50 I agree with the RN Medical Screening Exam: Yes Case reviewed; plan agreed upon as documented in EMR&OBIX.: Yes Diagnosis: RELATED CONDITIONS, UNSPECIFIED, SECOND TRIMESTER
== END 2022-08-30 11:50 | disposition home or self-care (01) ==
LOC: FBPOP 11:16
PROVIDERS: ATTEND Obstetrics & Gynecology
DX: O26.893 Other specified pregnancy related conditions, third trimester (principal); F17.200 Nicotine dependence, unspecified, uncomplicated; O99.332 Smoking (tobacco) complicating pregnancy, second trimester; Z3A.20 20 weeks gestation of pregnancy
CPT/HCPCS: 99213

== ENCOUNTER 2022-12-15 16:38 | Outpatient (CLI) | payer OTHER ==
[2022-12-15 17:35] VITALS: BP 111/60; PULSE 90; RESP 16; TEMP 98.4
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
== END 2022-12-15 17:28 | disposition home or self-care (01) ==
LOC: FBPOP 16:38
PROVIDERS: ATTEND Obstetrics & Gynecology
DX: O26.893 Other specified pregnancy related conditions, third trimester (principal); F17.200 Nicotine dependence, unspecified, uncomplicated; O99.333 Smoking (tobacco) complicating pregnancy, third trimester; O98.313 Other infections with a predominantly sexual mode of transmission complicating pregnancy, third trimester; W10.9XXA Fall (on) (from) unspecified stairs and steps, initial encounter; B00.82 Herpes simplex myelitis; Z3A.35 35 weeks gestation of pregnancy
CPT/HCPCS: 59025; G0463; 99213

== ENCOUNTER 2023-01-07 19:48 | Outpatient (CLI) | payer OTHER ==
[2023-01-07 22:15] VITALS: BP 114/68; PULSE 99; RESP 16; TEMP 98.5
--- NOTE | 2023-01-14 06:36 | P.MSEPDOC ---
Presenting Problems - Arrival Data Date of Arrival on Unit: 01/07/23 Time of Arrival on Unit: 19:48 Mode of Transport: Wheelchair - Complaint OB-Reason for Admission/Chief Complaint: Possible Onset of Labor, Rule Out SROM Comment: Patient presents to triage wit report of possible rupture of membranes at 1900,. clear fluid. Patient states she may be having chay perez. Medical History - Information : 6 Para: 3 Term: 3 : 0 Abortions: Spontaneous or Elective: 2 Number of Living Children: 3 - Gestational Age Gestational Age by VIRIDIANA (wks/days): 38 Weeks and 6 Days - History Complications: Smoker, Hx. Substance Abuse Comment: THC Review of Systems - Review of Systems Constitutional: No problems Breast: No problems ENT: No problems Cardiovascular: No problems Respiratory: No problems Gastrointestinal: No problems Genitourinary: No problems Musculoskeletal: No problems Neurological: No problems Skin: No problems Vital Signs - Temperature Temperature: 98.5 F Temperature Source: Oral - Pulse Right Brachial Pulse Rate: 99 Pulse Assessment Method: Automatic Cuff - Respirations Respiratory Rate: 16 Oxygen Delivery Method: Room Air O2 Sat by Pulse Oximetry: 99 - Blood Pressure Right Arm Blood Pressure: 114/68 Blood Pressure Mean: 83 Blood Pressure Source: Automatic Cuff Medical Screen Scoring - Cervical Exam Dilation (cm): 2 Effacement (%): 60 Station: -2 Membranes: Intact - Uterine Contractions Frequency From (mins): 6 Frequency To (mins): 11 Duration From (seconds): 40 Duration To (seconds): 60 Intensity: Moderate Resting: Soft to palpation - Assessment - Baby A Baseline FHR: 130 Heart Rate - NICHD Category: Category I (Normal) NST: Reactive Physician Notification - Physician Notified Physician Notified Date: 01/07/23 Physician Notified Time: 20:17 Physician: Sadie Webster Order Received: Yes - Notification Comment Comment: Dr. Webster given report on unit for Dr. Zuleta patient that presents [facility]. for possible rupture of membranes and chay perez. Amnisure neative, cervical exam. unchanged from office visit yesterday /-2, heart tones and contraction. reviewed, patient appears comfortable in bed. Patient to be checked after 1 hour and. discharge home if no cervical change has been made. Maternal Triage Index - Stat/Priority 1 Stat Priority 1: No - Urgent/Priority 2 Urgent Priority 2: No - Prompt/Priority 3 Prompt Priority 3: No - Non-Urgent/Priority 4 Non-Urgent Priority 4: Yes Criteria Met for Priority 4: 38 6/7 contractions and c/o rom Disposition - Disposition OB Disposition: Discharge to home Discharge Date: 01/07/23 Discharge Time: 21:08 I agree with the RN Medical Screening Exam: Yes Case reviewed; plan agreed upon as documented in EMR&OBIX.: Yes Diagnosis: ENCOUNTER FOR FULL-TERM UNCOMPLICATED DELIVERY
== END 2023-01-07 21:08 ==
LOC: FBPOP 19:48
PROVIDERS: ATTEND Obstetrics & Gynecology
DX: O80 Encounter for full-term uncomplicated delivery (principal); Z3A.38 38 weeks gestation of pregnancy; F17.200 Nicotine dependence, unspecified, uncomplicated
CPT/HCPCS: 59025; 84112; G0463; 99213

== ENCOUNTER 2023-01-12 23:15 | Inpatient (IN) | payer OTHER ==
[2023-01-13] MEDS ORDERED: CARBOPROST TROMETHAMINE 250 MCG/ML 1 ML AMP IM PRN (02:25)
[2023-01-13] MEDS ORDERED: METHYLERGONOVINE 0.2 MG/ML 1 ML AMP IM PRN (02:25)
[2023-01-13] MEDS ORDERED: LIDOCAINE 0.5% (PF) 5 MG/ML (50 ML SDV) SQ PRN (02:25)
[2023-01-13] MEDS ORDERED: TRANEXAMIC ACID IN NACL,ISO-OS 1,000 MG in EMPTY BAG 1 BAG IV PRN (02:25)
[2023-01-13] MEDS ORDERED: miSOPROStoL 200 MCG TAB PO PRN (02:25)
[2023-01-13] MEDS ORDERED: OXYTOCIN 10 UNIT/ML 1 ML VIAL IM PRN (02:25)
[2023-01-13] MEDS ORDERED: TERBUTALINE 1 MG/ML VIAL SQ PRN (02:25)
[2023-01-13] MEDS ORDERED: OXYTOCIN 30 UNITS/500 ML NS 30 UNIT in SALINE 1 500ML.BAG IV SCH (02:30)
[2023-01-13 03:07] LABS: Basophils % (A) 0 %; Eosinophils # (A) 0.3 k/uL (0-0.7); Eosinophils % (A) 3 %; HCT 31.6 % (34.0-46.0); HGB 9.9 gm/dL (11.4-16.0); Hypochromasia Slight; Lymphocytes # (A) 1.9 k/uL (1.0-4.8); Lymphocytes % (A) 17 %; MCH 25.6 pg (25.0-35.0); MCHC 31.5 g/dL (31.0-37.0); MCV 81.5 fL (80.0-100.0); Mean Platelet Volume 9.2; Monocytes # (A) 0.5 k/uL (0-1.0); Monocytes % (A) 5 %; Neutrophils # (A) 8.1 k/uL (1.3-7.7); Neutrophils % (A) 73 %; Platelet Count 342 k/uL (150-450); Poikilocytosis Slight; RBC 3.88 m/uL (3.80-5.40); RDW 14.2 % (11.5-15.5); WBC 11.1 k/uL (3.8-10.6)
[2023-01-13 03:10] VITALS: RESP 16
[2023-01-13] MEDS: LACTATED RINGERS 1,000 ML IV SCH ×2 (03:58→05:23)
[2023-01-13 04:02] LABS: Amphetamine Screen,Urine Not Detected (NotDetected); Barbiturate Screen,Urine Not Detected (NotDetected); Benzodiazepines Screen,Urine Not Detected (NotDetected); Cocaine Screen,Urine Not Detected (NotDetected); Methadone Screen, Urine Not Detected (NotDetected); Opiate Screen,Urine Not Detected (NotDetected); Oxycodone Screen, Urine Not Detected (NotDetected); Phencyclidine Screen,Urine Not Detected (NotDetected); Tricyclic Antidepressant,Urine Not Detected (NotDetected); Urn Cannabinoid Scrn Detected (NotDetected)
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
--- NOTE | 2023-01-13 12:38 | P.PROBDLV ---
Vaginal Delivery Note - . Vaginal Delivery Note: The patient progressed to 9-9-1/2 cm after artificial rupture membranes with clear fluid noted and had a strong urge to push. Her cervix was noted to be 9- 1/2 but was stretchy and therefore she was allowed to push as desired. Cervix did stretch around the 's head and infant's head came to a crown with a couple pushes. Once reaching a crown the 's head and body delivered fairly rapidly reducing nuchal cord times one around the infant's head with delivery. Cord was clamped and cut after allowing it to finish pulsating. Infant was taken to warmer for evaluation. A viable female was noted with scores of 9 at 1 minute and 9 at 5 minutes and weight 7 lbs. 15 oz. Placenta delivered shortly thereafter, intact, with a three-vessel cord. Uterus contracted fairly well after oxytocin was given and uterine massage was carried out. Inspection of the perineum revealed no perineal lacerations. Estimated blood loss is approximately 150 mL's. Both mother and infant are in stable condition.
[2023-01-13] MEDS ORDERED: ACETAMINOPHEN TAB 325 MG TAB PO PRN (13:01)
[2023-01-13] MEDS ORDERED: SIMETHICONE 80 MG CHEWABLE PO PRN (13:01)
[2023-01-13] MEDS ORDERED: diphenhydrAMINE 25 MG CAP PO PRN (13:01)
[2023-01-13] MEDS ORDERED: LANOLIN CREAM 5 GM TUBE TOPICAL PRN (13:01)
[2023-01-13] MEDS ORDERED: MEASLES-MUMPS-RUBELLA VACC/PF 12,500 UNIT/0.5 ML VIAL SQ ONE (13:01)
[2023-01-13] MEDS ORDERED: diphenhydrAMINE 50 MG CAP PO PRN (13:01)
[2023-01-13] MEDS ORDERED: diphenhydrAMINE 50 MG/ML 1 ML VIAL IVP PRN ×2 (13:01)
[2023-01-13] MEDS ORDERED: HYDROCORTISONE 2.5% RECTAL CREAM 30 GM TUBE RECTAL PRN (13:01)
[2023-01-13] MEDS ORDERED: ZOLPIDEM 5 MG TAB PO PRN (13:01)
[2023-01-13] MEDS ORDERED: BENZOCAINE/MENTHOL SPRAY 1 GM/SPRAY AEROSOL TOPICAL PRN (13:01)
[2023-01-13] MEDS: IBUPROFEN 600 MG TAB PO PRN (16:17)
[2023-01-13] MEDS: SENNOSIDES-DOCUSATE SODIUM 1 EACH TAB PO SCH (20:56)
[2023-01-14] MEDS: IBUPROFEN 600 MG TAB PO PRN ×2 (02:47→09:38)
[2023-01-14 06:46] LABS: Basophils # (A) 0.1 k/uL (0-0.2); Basophils % (A) 1 %; Eosinophils # (A) 0.3 k/uL (0-0.7); Eosinophils % (A) 3 %; HCT 27.5 % (34.0-46.0); Hypochromasia Slight; Lymphocytes # (A) 1.9 k/uL (1.0-4.8); Lymphocytes % (A) 15 %; MCH 27.4 pg (25.0-35.0); MCHC 32.9 g/dL (31.0-37.0); MCV 83.3 fL (80.0-100.0); Mean Platelet Volume 9.4; Monocytes # (A) 0.6 k/uL (0-1.0); Monocytes % (A) 5 %; Neutrophils # (A) 8.9 k/uL (1.3-7.7); Neutrophils % (A) 74 %; Platelet Count 292 k/uL (150-450); RDW 14.4 % (11.5-15.5); WBC 12.1 k/uL (3.8-10.6)
[2023-01-14] MEDS: SENNOSIDES-DOCUSATE SODIUM 1 EACH TAB PO SCH (07:50)
--- NOTE | 2023-01-14 08:38 | P.DS ---
Providers Date of admission: 01/13/23 01:54 Expected date of discharge: 01/14/23 Attending physician: Jailene Ndiaye Primary care physician: Stated None Hospital Course: This is a 27-year-old female 6 para 3 at 39-5/7 weeks who presented in active labor. She delivered vaginally a viable female infant with scores of 9 at 1 minute and 9 at 5 minutes and infant weight of 7 lbs. 15 oz. Her course has been uncomplicated. Lochia has been decreasing. Her pain is been fairly well-controlled. She is breast-feeding. Vital signs are stable. Abdomen is soft with fundus firm and nontender. Extremities show negative Homans. Impression is status post vaginal delivery day #1. Plan is to discharge home today. Routine instructions are given. She is advised to follow up with Dr. Ndiaye in 6 weeks. She is advised to call the office if she has any further questions or concerns prior to her appointment time. She will be given a prescription for ibuprofen. She has a breast pump at home. Procedures: Spontaneous vaginal delivery of a viable female on 01/13/2023 Patient Condition at Discharge: Stable Plan - Discharge Summary New Discharge Prescriptions: New Ibuprofen [Motrin] 600 mg PO Q6HR PRN #60 tab PRN Reason: Mild Pain (Scale 1 To 3) Continue Vit No.179/Iron/Folic [ Tablet] 1 tab PO DAILY No Action valACYclovir HCL [Valtrex] 500 mg PO BID Discharge Medication List Vit No.179/Iron/Folic [ Tablet] 1 tab PO DAILY 08/30/22 [History] valACYclovir HCL [Valtrex] 500 mg PO BID 12/15/22 [History] Ibuprofen [Motrin] 600 mg PO Q6HR PRN #60 tab 01/14/23 [Rx] Follow up Appointment(s)/Referral(s): Jailene Ndiaye DO [Doctor of Osteopathic Medicine] - 02/24/23 11:15 am Activity/Diet/Wound Care/Special Instructions: Instructions 1. Do not begin any exercise program for 3 weeks. 2. Do not resume sexual relations for 3 weeks or longer if uncomfortable. 3. You may take tub baths or showers at any time. 4. You may use tampons if desired after 3 weeks. 5. Keep the area of episiotomy (stitches) clean and dry. 6. If you are not nursing, wear a good fitting, supportive bra during the day and limit fluid intake for at least 1 week to prevent breast engorgement. 7. Call the office, [phone], within the next week to make appointment for your 6 week checkup if it has not already been made. 8. Report any of the following occurrences to the doctor promptly: a. Heavy, excessive bleeding b. Chills, fever c. Burning or frequency of urination d. Pain or redness and breasts if nursing e. Increasing pain or swelling in episiotomy (stitches). In addition to the above instructions, the following additional should be followed: 1. No heavy lifting or straining (exercising) until after 6 week checkup. 2. Keep abdominal incision clean and dry: You may wear a dressing if more comf ortable. 3. Make office appointment for 10 days after going home or as instructed by her doctor. Discharge Disposition: HOME SELF-CARE
[2023-01-14 12:17] VITALS: BP 113/67; PULSE 79; TEMP 98.1
== END 2023-01-14 13:00 | disposition home or self-care (01) | DRG 560 ==
LOC: FBPOP 23:15 → 4FBP 01-13 01:54
PROVIDERS: ADMIT Obstetrics & Gynecology; ATTEND Obstetrics & Gynecology
PROC: 10E0XZZ Delivery of Products of Conception, External Approach (ICD-10-PCS; principal; 2023-01-13)
DX: O69.81X0 Labor and delivery complicated by cord around neck, without compression, not applicable or unspecified (principal); F17.200 Nicotine dependence, unspecified, uncomplicated; F31.9 Bipolar disorder, unspecified; F41.0 Panic disorder [episodic paroxysmal anxiety]; F43.10 Post-traumatic stress disorder, unspecified; O99.334 Smoking (tobacco) complicating childbirth; O99.344 Other mental disorders complicating childbirth; Z37.0 Single live birth; Z3A.39 39 weeks gestation of pregnancy
CPT/HCPCS: 59025; 80306; 85025; 86850; 86900; 86901; 99213